=== PATIENT | male | born 1935 | race Caucasian/White ===

== ENCOUNTER 2018-10-19 20:01 | Observation (INO) ==
[2018-10-19 20:42] LABS: Appearance,Urine CLEAR (Clear); Bilirubin,Urine Negative (Negative); Blood, Urine TRACE-I (Negative); Color,Urine YELLOW (Yellow); Glucose,Urine (UA) Negative (Negative); Ketones,Urine Negative (Negative); Leukocyte Esterase,Urine 3+ (Negative); Microscopic, Urine URINE MICROSCOPIC (MICROSCOPIC); PH,Urine 5.5 (5.0-8.5); Protein,Urine Negative (Negative); Specific Gravity, Urine 1.015 (1.005-1.030); Urobilinogen,Urine 0.2 EU/dl (0.2)
[2018-10-19 20:49] LABS: Bacteria,Urine 1+ /lpf
[2018-10-19 21:39] LABS: Basophils # 0.1 K/mm3 (0-0.2); Basophils % 0.5 % (0.1-2.0); Eosinophils # 0.2 K/mm3 (0.0-0.4); Eosinophils % 2.7 % (0.1-12.0); Hematocrit 38.4 % (42.0-52.0); Hemoglobin 12.3 g/dL (14.1-18.0); Lymphocytes # 2.3 K/mm3 (0.7-4.5); Lymphocytes % 25.9 % (10-50); Mean Corpuscular Hemoglobin 28.9 pg (27.0-31.2); Mean Corpuscular Volume 90.1 fl (80-94); Mean Platelet Volume 7.5 fl (7.4-10.4); Monocytes # 0.9 K/mm3 (0.1-1.0); Monocytes % 10.1 % (1.7-9.3); Neutrophils # 5.4 K/mm3 (1.8-7.8); Neutrophils % 60.7 % (37.0-80.0); Platelet Count 268 K/mm3 (142-424); Red Blood Count 4.26 M/mm3 (4.60-6.20); Red Cell Distribution Width 15.7 % (11.5-17.5)
[2018-10-19 21:57] LABS: Alanine Aminotransferase 26 U/L (12-78); Albumin Level 3.1 gm/dL (3.4-5.0); Albumin/Globulin Ratio 0.8 (1.1-1.8); Alkaline Phosphatase 119 U/L (46-116); Anion Gap 15.5 mEq/L (5-15); Aspartate Amino Transferase 19 U/L (15-37); Bilirubin,Total 0.7 mg/dL (0.2-1.0); Blood Urea Nitrogen 35 mg/dL (7-18); Carbon Dioxide 26 mmol/L (21.0-32.0); Chloride 103 mmol/L (98-107); Globulin 3.9 gm/dl (1.3-3.2); Glucose 203 mg/dL (74-106); Potassium 4.5 mmoL/L (3.5-5.1); Sodium 140 mmol/L (136-145)
--- NOTE | 2018-10-19 22:00 | Emergency Department Note ---
ED Disposition Clinical Impression: Renal failure (ARF), acute on chronic Qualifiers: Acute renal failure type: unspecified Chronic kidney disease stage: unspecified stage Qualified Code(s): N17.9 - Acute kidney failure, unspecified; N18.9 - Chronic kidney disease, unspecified UTI (urinary tract infection) Qualifiers: Urinary tract infection type: site unspecified Hematuria presence: without hematuria Qualified Code(s): N39.0 - Urinary tract infection, site not specified Non-Hodgkin lymphoma Qualifiers: Non-Hodgkin lymphoma type: unspecified type Lymphoma site: unspecified region Qualified Code(s): C85.90 - Non-Hodgkin lymphoma, unspecified, unspecified site Type 2 diabetes mellitus Qualifiers: Diabetes mellitus tectonophysicist insulin use: with shelter use Diabetes mellitus complication status: with unspecified complications Qualified Code(s): E11.8 - Type 2 diabetes mellitus with unspecified complications; 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 The time I documented below is in addition to time spent performing reported procedures but includes the following listed in this critical care notation. Medical Decision Making - Medical Records Medical records reviewed: Yes: I reviewed the patient's medical records. - Vinny Inquiry Pt receiving controlled substance: No Vital Signs: 10/19/18 20:14 Temperature 98.8 F Temperature Source Oral Pulse Rate [Right] 74 Respiratory Rate 20 Blood Pressure [Right Arm] 143/61 H Blood Pressure Mean [Right Arm] 88 Blood Pressure Source [Right Arm] Automatic Cuff Blood Pressure Position [Right Arm] Supine 02 Sat by Pulse Oximetry 100 Oxygen Delivery Method Room Air - Lab Data Lab results reviewed: Yes: I reviewed the patient's lab results. Lab Results 10/19/18 20:28: Urine Color Yellow, Urine Appearance Clear, Urine pH 5.5, Ur Specific [place] 1.015, Urine Protein Negative, Urine Glucose (UA) Negative, Urine Ketones Negative, Urine Blood Trace-i, Urine Nitrate Negative, Urine Bilirubin Negative, Urine Urobilinogen 0.2, Ur Leukocyte Esterase 3+ A, Urine RBC 3-5, Urine WBC 10-20, Urine Bacteria 1+ 10/19/18 21:30: WBC 9.0, RBC 4.26 L, Hgb 12.3 L, Hct 38.4 L, MCV 90.1, MCH 28.9, MCHC 32.0, RDW 15.7, Plt Count 268, MPV 7.5, Neut % (Auto) 60.7, Lymph % (Auto) 25.9, Wilkinson % (Auto) 10.1 H, Eos % (Auto) 2.7, Baso % (Auto) 0.5, Neut # (Auto) 5.4, Lymph # (Auto) 2.3, Wilkinson # (Auto) 0.9, Eos # (Auto) 0.2, Baso # (Auto) 0.1 10/19/18 21:30: Sodium 140, Potassium 4.5, Chloride 103, Carbon Dioxide 26, Anion Gap 15.5 H, BUN 35 H, Creatinine 2.58 H, Estimated Creat Clear 34, Estimated GFR 24 L, Est GFR ( Amer) 29 L, Glucose 203 H, Calcium 9.0, Total Bilirubin 0.7, AST 19, ALT 26, Alkaline Phosphatase 119 H, Troponin I < 0.02, Total Protein 7.0, Albumin 3.1 L, Globulin 3.9 H, Albumin/Globulin Ratio 0.8 L Result diagrams: 10/19/18 21:30 10/19/18 21:30 Orders (Tests/Meds): ED MEDICATIONS Generic Name Dose Route Start Last Admin Trade Name Freq PRN Reason Stop Dose Admin Sodium Chloride 1,000 mls @ 999 mls/hr 10/19/18 20:30 10/19/18 20:35 Sod Chlor 0.9% 1000ml Bag IV 10/19/18 21:30 999 mls/hr .Q1H1M YOAV Administration Ceftriaxone Sodium 1 gm/ 50 mls @ 100 mls/hr 10/19/18 22:15 Sodium Chloride IV 11/02/18 22:14 Q24H YOAV Protocol ORDERS Category Date Time Status CT head/brain wo con Stat Cat Scan 10/19/18 20:28 Taken XR chest 2V Stat Exams 10/19/18 20:28 Taken Lactic Acid Stat Lab 10/19/18 21:30 Received Urinalysis and Microscopic Stat Lab 10/19/18 20:28 Ordered Blood Culture Stat Micro 10/19/18 21:30 Received Urine Culture Stat Micro 10/19/18 20:28 Received - Radiology Data #1 Image(s): Chest Image Reviewed: Yes I reviewed the patient's radiology image Preliminary Findings: Abnormal (chronic changes ) - CT Data CT Scan: Head Time Received: 22:[address] Reviewed: Yes: I have viewed the radiologist's interpretation Preliminary Findings: Normal/NAD - ECG Data Tracing #1 Normal Sinus Rhythm: Yes Ischemic changes: non-specific ST-T wave changes Weakness HPI - General Chief complaint: Dizziness Stated complaint: weak,dizzy Time Seen by Provider: 10/19/18 20:25 Mode of Arrival: Wheelchair Limitations: No Limitations Description of Symptoms (Recalled from ER Triage Doc. by RN): Pt states he has been dizzy and light headed today w/ SOA on exertion - History of Present Illness HPI Narrative: progressive weakness and lightheaded with dec ambulation over the last 3 days - had recent uti rx for 3 days with cipro - no fever or chest pain - has hx of cad and diabetes MD Complaint: generalized weakness Onset (ago): day(s) Duration: intermittent Location: generalized Severity: moderate Associated symptoms: shortness of breath - Related Data Home Medications Medication Instructions Recorded Confirmed Amiodarone HCl [Amiodarone 200mg 200 mg PO DAILY 10/26/17 10/19/18 Tab] Atorvastatin Calcium [Atorvastatin 20 mg PO HS 10/26/17 10/19/18 20mg Tab] Carvedilol [Carvedilol 6.25mg Tab] 6.25 mg PO TID 10/26/17 10/19/18 Clopidogrel Bisulfate [Plavix 75mg 75 mg PO DAILY 10/26/17 10/19/18 Tab] Glimepiride 4 mg PO DAILY 10/26/17 10/19/18 Lisinopril [Lisinopril 40mg Tablet] 40 mg PO BID 10/26/17 10/19/18 Mirtazapine [Remeron 15mg tablet] 15 mg PO HS 10/26/17 10/19/18 Tamsulosin HCl [Flomax 0.4mg 0.4 mg PO DAILY 10/26/17 10/19/18 capsule] Cetirizine HCl 10 mg PO DAILY 10/27/17 10/19/18 Pantoprazole Sodium [Protonix 40mg 40 mg PO DAILY 10/27/17 10/19/18 tablet] Cholecalciferol (Vitamin D3) 2,000 units PO DAILY 10/28/17 10/19/18 [Vitamin D3] furosemide 40 mg tablet 40 mg PO DAILY tab 11/11/17 10/19/18 levothyroxine 75 mcg capsule 75 mcg PO DAILY cap 11/11/17 10/19/18 aspirin 325 mg tablet 325 mg PO DAILY 05/19/18 10/19/18 multivitamin tablet 1 tab PO DAILY 05/19/18 10/19/18 Amlodipine Besylate [Amlodipine 10 mg PO DAILY 10/19/18 10/19/18 10mg Tab] Sitagliptin Phosphate [Januvia 25 mg PO DAILY 10/19/18 10/19/18 25mg Tablet] Vit D3-Vit K/Berberine/Hops 1 each PO DAILY 10/19/18 10/19/18 [Ostera Tablet] Allergies Allergy/AdvReac Type Severity Reaction Status Date / Time ibuprofen [From MOTRIN] Allergy Unknown Verified 11/11/17 10:40 meloxicam Allergy Unknown Verified 11/11/17 10:40 Penicillins Allergy Unknown Verified 11/11/17 10:40 [facility] History - Hepatitis A Screen Drug use history?: No High risk sexual behaviors?: No History of sexually transmitted infection?: No Currently employed?: No Childcare worker?: No Do you have indoor plumbing?: Yes Do you have electricity?: Yes Attestation statement:: This patient has been screened for Hepatitis A risk factors. I have reviewed the patient's past medical history: Yes Medical History: Reports:: Arrhythmia, Atherosclerotic Heart Disease, Atrial Fibrillation, BPH, Cancer, Chronic Obstructive Pulmonary Disease (COPD), Coronary Artery Disease, Cerebrovascular Accident, Deep Vein Thrombosis, Diabetes Mellitus Type 2, Gastroesophageal Reflux Disease(GERD), Peripheral Artery Disease, Peripheral Vascular Disease, Renal Insufficiency Denies:: Diabetes Mellitus Type 1, Internal Pacemaker, MRSA, Seizures Other Medical History: Reports: Arthritis, Hypothyroidism, Other Laterality Cases: Left: Carotid Endarterectomy Other Surgeries: No: Pacemaker Amputation: No Fractures: No Comment: Coronary stents in 2015; stents in leg; cholecystectomy; 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) - Social History Smoking Status: Former smoker #Yrs smoked (if former smoker): 40 Alcohol Intake: never Alcohol Intake Frequency:: other Occupational Status: retired Housing: house Household Members: spouse - Psychiatric History Expresses thoughts of harming self/others: None Suicide Plan Description: No Plan Family Hx:: No significant family history ROS Obtained: Yes All systems reviewed & no additional complaints - Constitutional Constitutional: Denies fever(s), Reports weakness - Eyes Eyes: Denies change in vision - ENT Ears, Nose, Mouth, and Throat: Denies sore throat - Cardiovascular Cardiovascular: Denies chest pain, Denies dyspnea - Respiratory Respiratory: No cough - Gastrointestinal Gastrointestingal: Denies: abdominal pain - Genitourinary Male Genitourinary: Denies hematuria - Musculoskeletal Musculoskeletal: Denies joint pain - Integumentary/Breasts Skin/Breast: Denies rash - Neurologic Neurologic: Denies confusion, Denies headache(s), Denies seizure-like activity Physical Exam - General General appearance: alert, obese - Head Head exam: normocephalic - Eye Eye exam: Present: PERRL, EOMI. Absent: scleral icterus - ENT ENT exam: Present: mucous membranes dry - Neck Neck exam: Present: trachea midline - Respiratory Respiratory exam: Present: other (dec bs bilat ). Absent: respiratory distress - Cardiovascular Cardiovascular exam: Present: regular rate, systolic murmur, +S4 - Abdominal Exam Abdominal exam: Present: soft - Extremities Exam Extremities exam: Absent: calf tenderness - Back Exam Back exam: Absent: CVA tenderness (R), CVA tenderness (L) - Neurological Exam Neurological exam: Present: alert, oriented X3, CN II-XII intact. Absent: motor sensory deficit, reflexes normal - Psychiatric Psychiatric exam: Present: normal affect - Skin Skin exam: Absent: rash
[2018-10-20 05:00] LABS: Basophils % 0.5 % (0.1-2.0); Eosinophils # 0.3 K/mm3 (0.0-0.4); Eosinophils % 3.7 % (0.1-12.0); Hematocrit 34.6 % (42.0-52.0); Hemoglobin 11.1 g/dL (14.1-18.0); Lymphocytes # 2.2 K/mm3 (0.7-4.5); Mean Corpuscular HGB Conc 32.2 g/dL (31.8-35.4); Mean Corpuscular Hemoglobin 28.8 pg (27.0-31.2); Mean Corpuscular Volume 89.5 fl (80-94); Mean Platelet Volume 8.2 fl (7.4-10.4); Monocytes # 0.8 K/mm3 (0.1-1.0); Monocytes % 10.8 % (1.7-9.3); Neutrophils # 4.2 K/mm3 (1.8-7.8); Platelet Count 244 K/mm3 (142-424); Red Blood Count 3.87 M/mm3 (4.60-6.20); Red Cell Distribution Width 15.8 % (11.5-17.5); White Blood Count 7.5 K/mm3 (4.8-10.8)
[2018-10-20 05:07] LABS: Anion Gap 13.7 mEq/L (5-15); Calcium 8.6 mg/dL (8.5-10.1); Potassium 3.7 mmoL/L (3.5-5.1)
--- NOTE | 2018-10-20 07:18 | Pharmacy Consult Notes ---
[facility] Pharmacy VTE Monitoring - Patient Demographics Admission date: 10/19/18 Report Date: 10/20/18 Time: 07:18 Allergies/Adverse Reactions: Patient Allergies ibuprofen [From MOTRIN] Allergy (Unknown, Verified 11/11/17 10:40) meloxicam Allergy (Unknown, Verified 11/11/17 10:40) Penicillins Allergy (Unknown, Verified 11/11/17 10:40) Height: 1.78 m Weight: 109.679 kg Patient Problems: Current Active Problems Non-Hodgkin lymphoma (Chronic) Hypothyroidism (Chronic) Type 2 diabetes mellitus (Chronic) Renal failure (ARF), acute on chronic (Acute) UTI (urinary tract infection) (Acute) - VTE Risk Labs: VTE Related Lab Results Hgb 11.1 g/dL (14.1-18.0) L 10/20/18 04:45 Hct 34.6 % (42.0-52.0) L 10/20/18 04:45 Plt Count 244 K/mm3 (142-424) 10/20/18 04:45 BUN 32 mg/dL (7-18) H 10/20/18 04:45 Creatinine 2.26 mg/dL (0.70-1.30) H 10/20/18 04:45 Estimated Creat Clear 38 mL/min (50-200) 10/20/18 04:45 Was VTE Risk Assessment Performed: Yes VTE Score: 4 VTE Risk Level: Low Risk - Prophylaxis VTE Prophylaxis Ordered?: Yes Types of VTE Prophylaxis: TEDS Knee High Location of Applied Device: Bilateral Lower Extremeties - VTE Diagnosis Confirmed Treatment or plan recommended: Continue Current Treatment
--- NOTE | 2018-10-20 08:41 | History & Physical Report ---
Addendum entered and electronically signed by Ellyn Lynn APRN 10/20/18 09:56: TSH 09/15/2018-2.74 Original Note: *Admission Date: 10/19/18 <Ellyn Lynn - 10/20/18 08:45> *Chief complaint: Weakness and shortness of breath <Ellyn Lynn - 10/20/18 08:45> *History of present illness: Mr. Lopez is a 83-year-old male with a history of CVA, atrial fibrillation, known carotid artery disease, non-Hodgkin's lymphoma in remission, hypertension, hyperlipidemia, DVT/PE, ASCVD, PVD, type 2 diabetes mellitus, hypothyroidism and renal insufficiency who was brought to the [facility] emergency room by his daughter via private vehicle due to progressive weakness associated with shortness of breath and lightheadedness. Patient denied having chest pain and palpitations. He has been eating normally without problems. Bowels are moving regularly. He was treated last week for Klebsiella urinary tract infection with Cipro. He states he has been voiding normally since then. He denies fever, cough, and other respiratory symptoms. With evaluation in the emergency room he was given a liter of IV fluids and started on IV Rocephin. He was admitted for further evaluation and treatment. Chest x-ray showed nothing acute. CT of the head showed nothing acute. This a.m. patient is comfortable sitting on the side of the bed. He denies shortness of breath, chest pain, and heart palpitations. He states he did not sleep at all during the night due to the new environment and noises. <Ellyn Lynn - 10/20/18 09:31> [facility] History Medical History: Reports:: Arrhythmia, Atherosclerotic Heart Disease, Atrial Fibrillation, BPH, Cancer (non-hodgkins lymphoma), Chronic Obstructive Pulmonary Disease (COPD), Coronary Artery Disease, Cerebrovascular Accident, Deep Vein Thrombosis, Diabetes Mellitus Type 2, Gastroesophageal Reflux Disease(GERD), Hyperlipidemia, Hypertension, Peripheral Artery Disease, Peripheral Vascular Disease, Renal Insufficiency Denies:: Dementia, Depression, Diabetes Mellitus Type 1, Internal Pacemaker, MRSA, Seizures <Ellyn Lynn 10/20/18 09:20> *Have you ever received a pneumonia vaccine?: No <Ellyn Lynn 10/20/18 08:45> *Have you received a flu vaccine this season?: Yes <ShaneEllyn 10/20/18 08:45> Other Medical History: Reports: Arthritis, Cataracts, Hypothyroidism, Thyroid Disease, Other <LynnEllyn 10/20/18 09:20> Laterality Cases: Left: Carotid Endarterectomy <ShaneEllyn 10/20/18 08:45> Other Surgeries: Yes: Cardiac Catheterization, Cholecystectomy, Colonoscopy, Colon Resection, Coronary Stent, Other (Carotid Endarterectomy). No: Pacemaker <LynnEllyn 10/20/18 08:45> Amputation: No <LynnEllyn 10/20/18 08:45> Fractures: No <LynnEllyn 10/20/18 08:45> - *Social History Educational Level: Completed High School <LynnEllyn carter 10/20/18 08:45> Smoking Status: Former smoker <Lynn,Ellyn 10/20/18 08:45> #Yrs smoked (if former smoker): 40 <Ellyn Lynn 10/20/18 08:45> Alcohol Intake: never <LynnEllyn 10/20/18 08:45> Alcohol Intake Frequency:: other <LynnEllyn 10/20/18 08:45> *Occupational Status:: retired <LynnEllyn carter 10/20/18 08:45> Housing: house <LynnEllyn 10/20/18 08:45> Household Members: children <LynnEllyn carter 10/20/18 09:20> *Travel in the last 8 weeks: None <Ellyn Lynn 10/20/18 08:45> - Psychiatric History Expresses thoughts of harming self/others: None <Ellyn Lynn 10/20/18 08:45> Suicide Plan Description: No Plan <Ellyn Lynn 10/20/18 08:45> Family Hx:: Cancer <Ellyn yLnn 10/20/18 08:45> Review of Systems - Constitutional Reports weakness, Denies body ache(s), Denies chills, Denies fever(s), Denies headache(s), Denies weight loss <Ellyn Lynn 10/20/18 09:20> - Eyes Denies change in vision <Ellyn Lynn 10/20/18 09:20> - ENT Reports dizziness, Denies ear pain, Denies headache(s), Denies sore throat [facility]/18 09[facility]> - *Cardiovascular Reports shortness of breath, Reports shortness of breath with activity, Reports leg swelling (Sometimes), Reports lightheadedness, Denies chest pain, Denies generalized swelling, Denies irregular heart rhythm <[facility] 10/20/18 09:20> - *Respiratory Reports shortness of breath, Reports shortness of breath with activity, Denies chest congestion, Denies cough, Denies coughing up blood <[facility] 10/20/18 09:20> - *Gastrointestinal Denies abdominal pain, Denies change in bowel habits, Denies change in stools, Denies constipation, Denies loose stools, Denies heartburn, Denies incontinent of stools, Denies heartburn, Denies vomiting blood, Denies bright, red blood in stools, Denies black, tarry stools, Denies nausea, Denies vomiting <[facility] 10/20/18 09:20> - *Genitourinary Denies difficulty urinating, Denies painful urination, Denies urinary frequency <[facility] 10/20/18 09:20> - *Musculoskeletal Reports abnormal walking (Has had to use his walker due to legs being weak), Reports joint pain (Left knee), Reports muscle weakness, Denies body aches <[facility] 10/20/18 09:20> - *Neurologic Reports dizziness, Reports dizziness, Reports weakness, Denies confusion, Denies frequent falls, Denies headache(s), Denies other visual disturbances, Denies seizure-like activity <[facility] 10/20/18 09:20> Meds Home Medications Medication Instructions Recorded Confirmed Type Atorvastatin Calcium [Atorvastatin 20 mg PO HS 10/26/17 10/19/18 History 20mg Tab] Carvedilol [Carvedilol 6.25mg Tab] 6.25 mg PO TID 10/26/17 10/19/18 History Clopidogrel Bisulfate [Plavix 75mg 75 mg PO DAILY 10/26/17 10/19/18 History Tab] Glimepiride 4 mg PO DAILY 10/26/17 10/19/18 History Lisinopril [Lisinopril 40mg Tablet] 40 mg PO BID 10/26/17 10/19/18 History Mirtazapine [Remeron 15mg tablet] 15 mg PO HS 10/26/17 10/19/18 History Tamsulosin HCl [Flomax 0.4mg 0.4 mg PO DAILY 10/26/17 10/19/18 History capsule] Pantoprazole Sodium [Protonix 40mg 40 mg PO DAILY 10/27/17 10/19/18 History tablet] Cholecalciferol (Vitamin D3) 2,000 units PO DAILY 10/28/17 10/19/18 History [Vitamin D3] furosemide 40 mg tablet 40 mg PO DAILY tab 11/11/17 10/19/18 History levothyroxine 75 mcg capsule 75 mcg PO DAILY cap 11/11/17 10/19/18 History aspirin 325 mg tablet 325 mg PO DAILY 05/19/18 10/19/18 History multivitamin tablet 1 tab PO DAILY 05/19/18 10/19/18 History Amlodipine Besylate [Amlodipine 10 mg PO DAILY 10/19/18 10/19/18 History 10mg Tab] Sitagliptin Phosphate [Januvia 25 mg PO DAILY 10/19/18 10/19/18 History 25mg Tablet] Vit D3-Vit K/Berberine/Hops 1 each PO DAILY 10/19/18 10/19/18 History [Ostera Tablet] Amiodarone HCl [Cordarone 200mg 200 mg PO DAILY 10/20/18 10/20/18 History tablet] Cetirizine HCl [Zyrtec] 10 mg PO DAILY 10/20/18 10/20/18 History <César White - 10/21/18 22:06> Allergies Allergy/AdvReac Type Severity Reaction Status Date / Time ibuprofen [From MOTRIN] Allergy Unknown Verified 11/11/17 10:40 meloxicam Allergy Unknown Verified 11/11/17 10:40 Penicillins Allergy Unknown Verified 11/11/17 10:40 <César White - 10/21/18 22:06> Exam Vital signs and Labs for Last 24 Hours: Temp Pulse Resp BP Pulse Ox 98.5 F 73 17 149/72 H 94 L 10/21/18 20:00 10/21/18 20:00 10/21/18 20:00 10/21/18 20:00 10/21/18 20:00 Laboratory Results - last 24 hr 10/21/18 05:07: POC Glucose 122 H 10/21/18 06:20: WBC 6.8, RBC 3.73 L, Hgb 10.7 L, Hct 33.6 L, MCV 90.2, MCH 28.6, MCHC 31.7 L, RDW 15.2, Plt Count 229, MPV 7.7, Neut % (Auto) 60.0, Lymph % (Auto) 23.8, [place] % (Auto) 12.0 H, Eos % (Auto) 3.9, Baso % (Auto) 0.3, Neut # (Auto) 4.0, Lymph # (Auto) 1.6, [place] # (Auto) 0.8, Eos # (Auto) 0.3, Baso # (Auto) 0.0 10/21/18 06:20: Sodium 143, Potassium 4.0, Chloride 109 H, Carbon Dioxide 26, Anion Gap 12.0, BUN 22 H D, Creatinine 1.63 H D, Estimated Creat Clear 51, Estimated GFR 40 L, Est GFR ( Amer) 49 L D, Glucose 139 H, Calcium 8.7 10/21/18 11:17: POC Glucose 188 H 10/21/18 16:43: POC Glucose 115 H 10/21/18 20:34: POC Glucose 192 H <ChristopherCésar Carlos Alberto - 10/21/18 22:06> Temp Pulse Resp BP Pulse Ox 98.0 F 81 18 144/60 H 93 L 10/20/18 08:00 10/20/18 08:00 10/20/18 08:00 10/20/18 08:00 10/20/18 08:00 Laboratory Results - last 24 hr 10/19/18 20:28: Urine Color Yellow, Urine Appearance Clear, Urine pH 5.5, Ur Specific [place] 1.015, Urine Protein Negative, Urine Glucose (UA) Negative, Urine Ketones Negative, Urine Blood Trace-i, Urine Nitrate Negative, Urine Bilirubin Negative, Urine Urobilinogen 0.2, Ur Leukocyte Esterase 3+ A, Urine RBC 3-5, Urine WBC 10-20, Urine Bacteria 1+ 10/19/18 21:30: WBC 9.0, RBC 4.26 L, Hgb 12.3 L, Hct 38.4 L, MCV 90.1, MCH 28.9, MCHC 32.0, RDW 15.7, Plt Count 268, MPV 7.5, Neut % (Auto) 60.7, Lymph % (Auto) 25.9, [place] % (Auto) 10.1 H, Eos % (Auto) 2.7, Baso % (Auto) 0.5, Neut # (Auto) 5.4, Lymph # (Auto) 2.3, [place] # (Auto) 0.9, Eos # (Auto) 0.2, Baso # (Auto) 0.1 10/19/18 21:30: Sodium 140, Potassium 4.5, Chloride 103, Carbon Dioxide 26, Anion Gap 15.5 H, BUN 35 H, Creatinine 2.58 H, Estimated Creat Clear 34, Estimated GFR 24 L, Est GFR ( Amer) 29 L, Glucose 203 H, Calcium 9.0, Total Bilirubin 0.7, AST 19, ALT 26, Alkaline Phosphatase 119 H, Troponin I < 0.02, Total Protein 7.0, Albumin 3.1 L, Globulin 3.9 H, Albumin/Globulin Ratio 0.8 L 10/19/18 21:30: Lactate 2.5 H 10/20/18 01:30: Troponin I < 0.02 10/20/18 01:30: Lactate 0.9 10/20/18 04:45: Troponin I < 0.02 10/20/18 04:45: WBC 7.5, RBC 3.87 L, Hgb 11.1 L, Hct 34.6 L, MCV 89.5, MCH 28.8, MCHC 32.2, RDW 15.8, Plt Count 244, MPV 8.2, Neut % (Auto) 56.0, Lymph % (Auto) 29.0, [place] % (Auto) 10.8 H, Eos % (Auto) 3.7, Baso % (Auto) 0.5, Neut # (Auto) 4.2, Lymph # (Auto) 2.2, [place] # (Auto) 0.8, Eos # (Auto) 0.3, Baso # (Auto) 0.0 10/20/18 04:45: Sodium 144, Potassium 3.7, Chloride 107, Carbon Dioxide 27, Anion Gap 13.7, BUN 32 H, Creatinine 2.26 H, Estimated Creat Clear 38, Estimated GFR 28 L, Est GFR ( Amer) 34 L, Glucose 119 H D, Calcium 8.6, Magnesium 1.7 10/20/18 05:49: POC Glucose 111 H <Ellyn Lynn - 10/20/18 09:20> I & O for Last 24 hours: Intake & Output 10/19/18 10/20/18 10/21/18 10/22/18 11:59 11:59 11:59 11:59 Intake Total 700 / 700 2078 2390 / 2390 Output Total 300 / 300 Balance 400 / 400 2078 2390 / 2390 Weight 241 lb 12.8 oz 241 lb <César White - 10/21/18 22:06> Intake & Output 10/17/18 10/18/18 10/19/18 10/20/18 11:59 11:59 11:59 11:59 Intake Total 700 / 700 Output Total 300 / 300 Balance 400 / 400 Weight 241 lb 12.8 oz <Ellyn Lynn - 10/20/18 08:45> Microbiology Reports for the Last 24 Hours: Microbiology 10/19/18 21:30 Blood Blood Culture - Preliminary NO GROWTH AFTER 48 HOURS 10/19/18 21:30 Blood Blood Culture - Preliminary NO GROWTH AFTER 48 HOURS 10/19/18 20:28 Urine,Clean Catch Urine Culture - Final Klebsiella pneumoniae <César White - 10/21/18 22:06> Microbiology 10/19/18 20:28 Urine,Clean Catch Urine Culture - Preliminary Gram Negative Rods <Ellyn Lynn - 10/20/18 09:20> Radiology Reports for the Last 24 Hours: 10/19/2018 chest x-ray IMPRESSION: No change with no acute finding 10/19/2018 CT of the head IMPRESSION: 1. No acute intracranial findings. 2. Agenesis of the corpus callosum <Ellyn Lynn - 10/20/18 08:45> - Constitutional no acute distress, obese <Ellyn Lynn - 10/20/18 08:45> Comments: Patient appears comfortable. Sitting on the bedside completing his breakfast. <Ellyn Lynn 10/20/18 08:45> - *Routine HEENT Exam Head: Present: normocephalic, atraumatic <Ellyn Lynn 10/20/18 08:45> Eye: Present: PERRL. Absent: conjunctival icterus, scleral injection <Ellyn Lynn 10/20/18 08:45> ENT: Present: mucous membranes moist, oropharynx clear <Ellyn Lynn 10/20/18 08:45> - *Routine Neck Exam Present: supple, carotid bruit (Bilaterally). Absent: lymphadenopathy, thyromegaly, tenderness <Ellyn Lynn 10/20/18 08:45> - *Routine Respiratory Exam Present: CTA bilaterally (Anteriorly and posteriorly) <Ellyn Lynn 10/20/18 08:45> - *Routine Cardiovascular Exam Present: RRR (No ectopy heard. Heart rate in the 90s) <Ellyn Lynn 10/20/18 08:45> - *Routine Abdominal Exam Present: soft, normoactive bowel sounds, surgical scars. Absent: tenderness, guarding <Ellyn Lynn 10/20/18 08:45> Comments: Obese <Ellyn Lynn 10/20/18 08:45> - *Routine Extremities Exam Present: edema (Trace to 1+), pulses intact. Absent: calf tenderness <Ellyn Lynn 10/20/18 08:45> - *Routine Neurological Exam Present: alert, oriented X3, CN II-XII intact, moving all extremities, normal speech <Clementina Lynnhy 10/20/18 08:45> Assessment and Plan (1) Dehydration Current visit: No Status: Acute Category: Medical Code(s): E86.0 - Dehydration (2) UTI (urinary tract infection) Current visit: Yes Status: Acute Qualifiers: Urinary tract infection type: site unspecified Hematuria presence: without hematuria Qualified Code(s): N39.0 - Urinary tract infection, site not specified Category: Medical Code(s): N39.0 - Urinary tract infection, site not specified (3) Renal failure (ARF), acute on chronic Current visit: Yes Status: Acute Qualifiers: Acute renal failure type: unspecified Chronic kidney disease stage: unspecified stage Qualified Code(s): N17.9 - Acute kidney failure, unspecified; N18.9 - Chronic kidney disease, unspecified Category: Medical Code(s): N17.9 - Acute kidney failure, unspecified; N18.9 - Chronic kidney disease, unspecified (4) History of atrial fibrillation Current visit: Yes Status: Chronic Category: Medical Code(s): Z86.79 - Personal history of other diseases of the circulatory system (5) Hypothyroidism Current visit: Yes Status: Chronic Qualifiers: Hypothyroidism type: acquired Qualified Code(s): E03.9 - Hypothyroidism, unspecified Category: Medical Code(s): E03.9 - Hypothyroidism, unspecified (6) Non-Hodgkin lymphoma Current visit: Yes Status: Chronic Qualifiers: Non-Hodgkin lymphoma type: unspecified type Lymphoma site: unspecified region Qualified Code(s): C85.90 - Non-Hodgkin lymphoma, unspecified, unspecified site Category: Medical Code(s): C85.90 - Non-Hodgkin lymphoma, unspecified, unspecified site (7) Type 2 diabetes mellitus Current visit: Yes Status: Chronic Qualifiers: Diabetes mellitus oysterman insulin use: with assisted use Diabetes mellitus complication status: with unspecified complications Qualified Code(s): E11.8 - Type 2 diabetes mellitus with unspecified complications; Z79.4 - keno terminal operator (current) use of insulin Category: Medical Code(s): E11.9 - Type 2 diabetes mellitus without complications (8) ASCVD (arteriosclerotic cardiovascular disease) Current visit: No Status: Chronic Category: Medical Code(s): I25.10 - Atherosclerotic heart disease of [place] coronary artery without angina pectoris (9) Chronic CHF Current visit: No Status: Chronic Qualifiers: Heart failure type: unspecified Qualified Code(s): I50.9 - Heart failure, unspecified Category: Medical Code(s): I50.9 - Heart failure, unspecified (10) HTN (hypertension) Current visit: No Status: Chronic Category: Medical Code(s): I10 - Essential (primary) hypertension (11) Dyspnea Current visit: Yes Status: Acute Category: Medical Code(s): R06.00 - Dyspnea, unspecified (12) CKD (chronic kidney disease) stage 3, GFR 30-59 ml/min Current visit: Yes Status: Acute Category: Medical Code(s): N18.3 - Chronic kidney disease, stage 3 (moderate) <César White - 10/21/18 22:06> (1) Dehydration Current visit: No Status: Acute Category: Medical Code(s): E86.0 - Dehydration (2) UTI (urinary tract infection) Current visit: Yes Status: Acute Qualifiers: Urinary tract infection type: site unspecified Hematuria presence: without hematuria Qualified Code(s): N39.0 - Urinary tract infection, site not specified Category: Medical Code(s): N39.0 - Urinary tract infection, site not specified (3) Renal failure (ARF), acute on chronic Current visit: Yes Status: Acute Qualifiers: Acute renal failure type: unspecified Chronic kidney disease stage: unspecified stage Qualified Code(s): N17.9 - Acute kidney failure, unspecified; N18.9 - Chronic kidney disease, unspecified Category: Medical Code(s): N17.9 - Acute kidney failure, unspecified; N18.9 - Chronic kidney disease, unspecified (4) History of atrial fibrillation Current visit: Yes Status: Chronic Category: Medical Code(s): Z86.79 - Personal history of other diseases of the circulatory system (5) Hypothyroidism Current visit: Yes Status: Chronic Qualifiers: Hypothyroidism type: acquired Qualified Code(s): E03.9 - Hypothyroidism, unspecified Category: Medical Code(s): E03.9 - Hypothyroidism, unspecified (6) Non-Hodgkin lymphoma Current visit: Yes Status: Chronic Qualifiers: Non-Hodgkin lymphoma type: unspecified type Lymphoma site: unspecified region Qualified Code(s): C85.90 - Non-Hodgkin lymphoma, unspecified, unspecified site Category: Medical Code(s): C85.90 - Non-Hodgkin lymphoma, unspecified, unspecified site (7) Type 2 diabetes mellitus Current visit: Yes Status: Chronic Qualifiers: Diabetes mellitus assisted insulin use: with oysterman use Diabetes mellitus complication status: with unspecified complications Qualified Code(s): E11.8 - Type 2 diabetes mellitus with unspecified complications; Z79.4 - care home (current) use of insulin Category: Medical Code(s): E11.9 - Type 2 diabetes mellitus without complications (8) ASCVD (arteriosclerotic cardiovascular disease) Current visit: No Status: Chronic Category: Medical Code(s): I25.10 - Atherosclerotic heart disease of [place] coronary artery without angina pectoris (9) CKD (chronic kidney disease) stage 2, GFR 60-89 ml/min Current visit: No Status: Chronic Category: Medical Code(s): N18.2 - Chronic kidney disease, stage 2 (mild) (10) Chronic CHF Current visit: No Status: Chronic Qualifiers: Heart failure type: unspecified Qualified Code(s): I50.9 - Heart failure, unspecified Category: Medical Code(s): I50.9 - Heart failure, unspecified (11) HTN (hypertension) Current visit: No Status: Chronic Category: Medical Code(s): I10 - Essential (primary) hypertension (12) Dyspnea <Ellyn Lynn - 10/20/18 09:52> - Assessment and plan all Dx Assessment and Plan for all problems:: Patient seen and examined this AM. Concur with assessment and plan as edited above. <César White - 10/21/18 22:06> Continue with IV Rocephin for UTI until culture results available. Patient has been placed on cardiac rehabilitation program director. Echo results are pending. Patient has been placed on sliding scale. Most home meds have been ordered. Will discontinue lisinopril for now due to renal function. Will monitor labs. Also cardiology consult <Ellyn Lynn - 10/20/18 09:53>
--- NOTE | 2018-10-20 10:22 | Consult Report ---
History of Present Illness Consult date: 10/20/18 Requesting physician: César White Chief complaint: Weakness, SOA with exertion Additional Medical History:: 1. CAD A. Remote history of [place] B. 2 ANNA to RCA, 06/30/2015 2. Mild Cardiomyopathy with inferior scar and LVEF 50-55% by echo, 2014 A. Echo, 05/2018, 1. Mildly enlarged left atrium, normal left ventricular size, mild concentric left ventricular hypertrophy, visually estimated ejection fraction 55% with no regional wall motion abnormality, endocardial surfaces are poorly visualized. Grade 1 diastolic dysfunction seen with tissue Doppler evidence of raised left atrial pressure. 2. Mild mitral and tricuspid regurgitation 3. No significant pericardial effusion noted 3. 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 CKD A. Cr 2.26 with GFR 28, 10/20/2018 5. A. fib A. History of coumadin therapy discontinued 2015 B. Maintaining NSR on amiodarone therapy 6. DM, treated for 15 >yrs 7. Carotid artery disease A. chronic LICA occlusion B. Right CEA, Dr. Osmel Woodruff, [facility] 8. Non-Hodgkins Lymphoma, 2008 with recurrence, 2017 9. Remote DVT/PE 10. Hypothyroidism 11. GERD History of present illness: Mr. Lopez is a 83-year-old male with a history of CVA, atrial fibrillation, known carotid artery disease, non-Hodgkin's lymphoma in remission, hypertension, hyperlipidemia, DVT/PE, ASCVD, PVD, type 2 diabetes mellitus, hypothyroidism and renal insufficiency who was brought to the [facility] emergency room by his daughter via private vehicle due to progressive weakness associated with shortness of breath and lightheadedness. Patient denied having chest pain and palpitations. He has been eating normally without problems. Bowels are moving regularly. He was treated last week for Klebsiella urinary tract infection with Cipro. He states he has been voiding normally since then. He denies fever, cough, and other respiratory symptoms. With evaluation in the emergency room he was given a liter of IV fluids and started on IV Rocephin. He was admitted for further evaluation and treatment. Chest x-ray showed nothing acute. CT of the head showed nothing acute. This a.m. patient is comfortable sitting on the side of the bed. He denies shortness of breath, chest pain, and heart palpitations. He states he did not sleep at all during the night due to the new environment and noises The above per Ellyn Santacruz APRN, for Dr. White Cardiology consulted for evaluation of the patient's complaint of weakness and shortness of breath. His shortness of breath seems to be related to exertion although he states it is not consistent with activity. He may have the shortness of breath while at rest. He describes weakness of the legs which prompted him to use a walker to move around his home. He admits to low level of activity. EKG appears to be sinus rhythm with no acute changes. Troponins have returned normal. Patient is on 2 antianginal medications including carvedilol and amlodipine along with aspirin and Plavix for antiplatelet therapy. Preliminary echocardiogram this a.m. shows preserved ejection fraction. [facility] [place] History Medical History: Reports:: Arrhythmia, Atherosclerotic Heart Disease, Atrial Fibrillation, BPH, Cancer (non-hodgkins lymphoma), Chronic Obstructive Pulmonary Disease (COPD), Coronary Artery Disease, Cerebrovascular Accident, Deep Vein Thrombosis, Diabetes Mellitus Type 2, Gastroesophageal Reflux Disease(GERD), Hyperlipidemia, Hypertension, Peripheral Artery Disease, Peripheral Vascular Disease, Renal Insufficiency Denies:: Dementia, Depression, Diabetes Mellitus Type 1, Internal Pacemaker, MRSA, Seizures *Have you ever received a pneumonia vaccine?: No *Have you received a flu vaccine this season?: Yes Other Medical History: Reports: Arthritis, Cataracts, Hypothyroidism, Thyroid Disease, Other Laterality Cases: Left: Carotid Endarterectomy Other Surgeries: Yes: Cardiac Catheterization, Cholecystectomy, Colonoscopy, Colon Resection, Coronary Stent, Other (Carotid Endarterectomy). No: Pacemaker Amputation: No Fractures: No - *Social History Educational Level: Completed High School Smoking Status: Former smoker #Yrs smoked (if former smoker): 40 Alcohol Intake: never Alcohol Intake Frequency:: other *Occupational Status:: retired Housing: house Household Members: children *Travel in the last 8 weeks: None - Psychiatric History Expresses thoughts of harming self/others: None Suicide Plan Description: No Plan Pschychiatric History:: Denies:: Depression Family Hx:: Cancer Meds Home Medications Medication Instructions Recorded Confirmed Type Atorvastatin Calcium [Atorvastatin 20 mg PO HS 10/26/17 10/19/18 History 20mg Tab] Carvedilol [Carvedilol 6.25mg Tab] 6.25 mg PO TID 10/26/17 10/19/18 History Clopidogrel Bisulfate [Plavix 75mg 75 mg PO DAILY 10/26/17 10/19/18 History Tab] Glimepiride 4 mg PO DAILY 10/26/17 10/19/18 History Lisinopril [Lisinopril 40mg Tablet] 40 mg PO BID 10/26/17 10/19/18 History Mirtazapine [Remeron 15mg tablet] 15 mg PO HS 10/26/17 10/19/18 History Tamsulosin HCl [Flomax 0.4mg 0.4 mg PO DAILY 10/26/17 10/19/18 History capsule] Pantoprazole Sodium [Protonix 40mg 40 mg PO DAILY 10/27/17 10/19/18 History tablet] Cholecalciferol (Vitamin D3) 2,000 units PO DAILY 10/28/17 10/19/18 History [Vitamin D3] furosemide 40 mg tablet 40 mg PO DAILY tab 11/11/17 10/19/18 History levothyroxine 75 mcg capsule 75 mcg PO DAILY cap 11/11/17 10/19/18 History aspirin 325 mg tablet 325 mg PO DAILY 05/19/18 10/19/18 History multivitamin tablet 1 tab PO DAILY 05/19/18 10/19/18 History Amlodipine Besylate [Amlodipine 10 mg PO DAILY 10/19/18 10/19/18 History 10mg Tab] Sitagliptin Phosphate [Januvia 25 mg PO DAILY 10/19/18 10/19/18 History 25mg Tablet] Vit D3-Vit K/Berberine/Hops 1 each PO DAILY 10/19/18 10/19/18 History [Ostera Tablet] Amiodarone HCl [Cordarone 200mg 200 mg PO DAILY 10/20/18 10/20/18 History tablet] Cetirizine HCl [Zyrtec] 10 mg PO DAILY 10/20/18 10/20/18 History Allergies Allergy/AdvReac Type Severity Reaction Status Date / Time ibuprofen [From MOTRIN] Allergy Unknown Verified 11/11/17 10:40 meloxicam Allergy Unknown Verified 11/11/17 10:40 Penicillins Allergy Unknown Verified 11/11/17 10:40 Review of Systems - *Cardiovascular Reports shortness of breath with activity, Denies chest pain - *Respiratory Reports shortness of breath with activity, Denies cough - *Gastrointestinal Denies abdominal pain, Denies loose stools - *Genitourinary Reports side pain, Denies testicle pain - *Musculoskeletal Reports joint pain, Reports back pain - *Neurologic Reports abnormal walking (Has had to use his walker due to legs being weak), Reports dizziness, Reports dizziness, Reports weakness, Denies confusion, Denies frequent falls, Denies headache(s), Denies other visual disturbances, Denies seizure-like activity Exam Vital signs and Labs for Last 24 Hours: Temp Pulse Resp BP Pulse Ox 98.0 F 81 18 144/60 H 93 L 10/20/18 08:00 10/20/18 08:00 10/20/18 08:00 10/20/18 08:00 10/20/18 08:00 Laboratory Results - last 24 hr 10/19/18 20:28: Urine Color Yellow, Urine Appearance Clear, Urine pH 5.5, Ur Specific [place] 1.015, Urine Protein Negative, Urine Glucose (UA) Negative, Urine Ketones Negative, Urine Blood Trace-i, Urine Nitrate Negative, Urine Bilirubin Negative, Urine Urobilinogen 0.2, Ur Leukocyte Esterase 3+ A, Urine RBC 3-5, Urine WBC 10-20, Urine Bacteria 1+ 10/19/18 21:30: WBC 9.0, RBC 4.26 L, Hgb 12.3 L, Hct 38.4 L, MCV 90.1, MCH 28.9, MCHC 32.0, RDW 15.7, Plt Count 268, MPV 7.5, Neut % (Auto) 60.7, Lymph % (Auto) 25.9, [place] % (Auto) 10.1 H, Eos % (Auto) 2.7, Baso % (Auto) 0.5, Neut # (Auto) 5.4, Lymph # (Auto) 2.3, [place] # (Auto) 0.9, Eos # (Auto) 0.2, Baso # (Auto) 0.1 10/19/18 21:30: Sodium 140, Potassium 4.5, Chloride 103, Carbon Dioxide 26, Anion Gap 15.5 H, BUN 35 H, Creatinine 2.58 H, Estimated Creat Clear 34, Estimated GFR 24 L, Est GFR ( Amer) 29 L, Glucose 203 H, Calcium 9.0, Total Bilirubin 0.7, AST 19, ALT 26, Alkaline Phosphatase 119 H, Troponin I < 0.02, Total Protein 7.0, Albumin 3.1 L, Globulin 3.9 H, Albumin/Globulin Ratio 0.8 L 10/19/18 21:30: Lactate 2.5 H 10/20/18 01:30: Troponin I < 0.02 10/20/18 01:30: Lactate 0.9 10/20/18 04:45: Troponin I < 0.02 10/20/18 04:45: WBC 7.5, RBC 3.87 L, Hgb 11.1 L, Hct 34.6 L, MCV 89.5, MCH 28.8, MCHC 32.2, RDW 15.8, Plt Count 244, MPV 8.2, Neut % (Auto) 56.0, Lymph % (Auto) 29.0, [place] % (Auto) 10.8 H, Eos % (Auto) 3.7, Baso % (Auto) 0.5, Neut # (Auto) 4.2, Lymph # (Auto) 2.2, [place] # (Auto) 0.8, Eos # (Auto) 0.3, Baso # (Auto) 0.0 10/20/18 04:45: Sodium 144, Potassium 3.7, Chloride 107, Carbon Dioxide 27, Anion Gap 13.7, BUN 32 H, Creatinine 2.26 H, Estimated Creat Clear 38, Estimated GFR 28 L, Est GFR ( Amer) 34 L, Glucose 119 H D, Calcium 8.6, Magnesium 1.7 10/20/18 04:45: TSH 3.32 D 10/20/18 05:49: POC Glucose 111 H I & O for Last 24 hours: Intake & Output 10/17/18 10/18/18 10/19/18 10/20/18 11:59 11:59 11:59 11:59 Intake Total 700 / 700 Output Total 300 / 300 Balance 400 / 400 Weight 241 lb 12.8 oz Microbiology Reports for the Last 24 Hours: Microbiology 10/19/18 20:28 Urine,Clean Catch Urine Culture - Preliminary Gram Negative Rods - *Routine HEENT Exam Head: Present: normocephalic Eye: Present: EOMI, PERRL ENT: Present: mucous membranes moist - *Routine Neck Exam Present: supple, carotid bruit. Absent: JVD - *Routine Respiratory Exam Present: CTA bilaterally. Absent: accessory muscle use, rales, rhonchi, wheezes - *Routine Cardiovascular Exam Present: RRR. Absent: murmur, gallop, rubs - *Routine Abdominal Exam Present: soft. Absent: tenderness, distended, guarding - *Routine Extremities Exam Absent: edema, calf tenderness - *Routine Neurological Exam Present: alert, oriented X3, moving all extremities Assessment and Plan (1) Dehydration Current visit: No Status: Acute Category: Medical Code(s): E86.0 - Dehydration (2) UTI (urinary tract infection) Current visit: Yes Status: Acute Qualifiers: Urinary tract infection type: site unspecified Hematuria presence: without hematuria Qualified Code(s): N39.0 - Urinary tract infection, site not specified Category: Medical Code(s): N39.0 - Urinary tract infection, site not specified (3) Renal failure (ARF), acute on chronic Current visit: Yes Status: Acute Qualifiers: Acute renal failure type: unspecified Chronic kidney disease stage: unsp ecified stage Qualified Code(s): N17.9 - Acute kidney failure, unspecified; N18.9 - Chronic kidney disease, unspecified Category: Medical Code(s): N17.9 - Acute kidney failure, unspecified; N18.9 - Chronic kidney disease, unspecified (4) History of atrial fibrillation Current visit: Yes Status: Chronic Category: Medical Code(s): Z86.79 - Personal history of other diseases of the circulatory system (5) Hypothyroidism Current visit: Yes Status: Chronic Qualifiers: Hypothyroidism type: acquired Qualified Code(s): E03.9 - Hypothyroidism, unspecified Category: Medical Code(s): E03.9 - Hypothyroidism, unspecified (6) Non-Hodgkin lymphoma Current visit: Yes Status: Chronic Qualifiers: Non-Hodgkin lymphoma type: unspecified type Lymphoma site: unspecified region Qualified Code(s): C85.90 - Non-Hodgkin lymphoma, unspecified, unspecified site Category: Medical Code(s): C85.90 - Non-Hodgkin lymphoma, unspecified, unspecified site (7) Type 2 diabetes mellitus Current visit: Yes Status: Chronic Qualifiers: Diabetes mellitus fdc insulin use: with fdc use Diabetes mellitus complication status: with unspecified complications Qualified Code(s): E11.8 - Type 2 diabetes mellitus with unspecified complications; Z79.4 - longterm (current) use of insulin Category: Medical Code(s): E11.9 - Type 2 diabetes mellitus without complications (8) ASCVD (arteriosclerotic cardiovascular disease) Current visit: No Status: Chronic Category: Medical Code(s): I25.10 - Atherosclerotic heart disease of [place] coronary artery without angina pectoris (9) CKD (chronic kidney disease) stage 2, GFR 60-89 ml/min Current visit: No Status: Chronic Category: Medical Code(s): N18.2 - Chronic kidney disease, stage 2 (mild) (10) Chronic CHF Current visit: No Status: Chronic Qualifiers: Heart failure type: unspecified Qualified Code(s): I50.9 - Heart failure, unspecified Category: Medical Code(s): I50.9 - Heart failure, unspecified (11) HTN (hypertension) Current visit: No Status: Chronic Category: Medical Code(s): I10 - Essential (primary) hypertension (12) Dyspnea Current visit: Yes Status: Acute Category: Medical Code(s): R06.00 - Dyspnea, unspecified - Assessment and plan all Dx Assessment and Plan for all problems:: 1. 83-year-old male with complaint of shortness of breath with exertion which is concerning for recurrent angina equivalent in this long-term diabetic with known coronary artery disease on 2 antianginal medications. Would like to obtain a Lexiscan Myoview stress test to evaluate for recurrent coronary artery disease. 2. Continue aspirin and Plavix therapy. 3. Further recommendations to follow pending above results. 4. Recent chest x-ray shows no evidence of pulmonary fibrosis so would therefore continue amiodarone therapy to maintain sinus rhythm and to avoid anticoagulation therapy. Liver and thyroid panel are normal.
[2018-10-21 06:51] LABS: Basophils % 0.3 % (0.1-2.0); Eosinophils # 0.3 K/mm3 (0.0-0.4); Eosinophils % 3.9 % (0.1-12.0); Hematocrit 33.6 % (42.0-52.0); Hemoglobin 10.7 g/dL (14.1-18.0); Lymphocytes # 1.6 K/mm3 (0.7-4.5); Lymphocytes % 23.8 % (10-50); Mean Corpuscular HGB Conc 31.7 g/dL (31.8-35.4); Mean Corpuscular Hemoglobin 28.6 pg (27.0-31.2); Mean Corpuscular Volume 90.2 fl (80-94); Mean Platelet Volume 7.7 fl (7.4-10.4); Monocytes # 0.8 K/mm3 (0.1-1.0); Platelet Count 229 K/mm3 (142-424); Red Blood Count 3.73 M/mm3 (4.60-6.20); Red Cell Distribution Width 15.2 % (11.5-17.5); White Blood Count 6.8 K/mm3 (4.8-10.8)
[2018-10-21 07:01] LABS: Calcium 8.7 mg/dL (8.5-10.1)
--- NOTE | 2018-10-21 08:12 | Progress Note ---
Addendum entered and electronically signed by Ellyn Lynn APRN 10/21/18 08:35: PT consulted Original Note: <Ellyn Lynn - Last Filed: 10/21/18 08:09> Internal Medicine - PN: Subj *Date: 10/21/18 *Time: 08:09 Interval history: Found patient in hallway going down for stress test. He states he had a good day yesterday and did sleep about 3-4 hours last night. He has been eating without difficulty. He said his breathing is good now and he denies chest pain. Renal function has improved Laboratory Tests 10/21/18 06:20 Sodium 143 Potassium 4.0 Chloride 109 H Carbon Dioxide 26 Anion Gap 12.0 BUN 22 H D Creatinine 1.63 H D Estimated Creat Clear 51 Estimated GFR 40 L Est GFR ( Amer) 49 L D Glucose 139 H Calcium 8.7 Exam Vital signs and Labs for Last 24 Hours: Temp Pulse Resp BP Pulse Ox 98.2 F 72 16 155/65 H 94 L 10/21/18 04:00 10/21/18 04:00 10/21/18 04:00 10/21/18 04:00 10/21/18 04:00 Laboratory Results - last 24 hr 10/20/18 04:45: TSH 3.32 D 10/20/18 11:54: POC Glucose 182 H 10/20/18 16:30: POC Glucose 131 H 10/20/18 20:03: POC Glucose 189 H 10/21/18 05:07: POC Glucose 122 H 10/21/18 06:20: WBC 6.8, RBC 3.73 L, Hgb 10.7 L, Hct 33.6 L, MCV 90.2, MCH 28.6, MCHC 31.7 L, RDW 15.2, Plt Count 229, MPV 7.7, Neut % (Auto) 60.0, Lymph % (Auto) 23.8, [place] % (Auto) 12.0 H, Eos % (Auto) 3.9, Baso % (Auto) 0.3, Neut # (Auto) 4.0, Lymph # (Auto) 1.6, [place] # (Auto) 0.8, Eos # (Auto) 0.3, Baso # (Auto) 0.0 10/21/18 06:20: Sodium 143, Potassium 4.0, Chloride 109 H, Carbon Dioxide 26, Anion Gap 12.0, BUN 22 H D, Creatinine 1.63 H D, Estimated Creat Clear 51, Estimated GFR 40 L, Est GFR ( Amer) 49 L D, Glucose 139 H, Calcium 8.7 I & O for Last 24 hours: Intake & Output 10/18/18 10/19/18 10/20/18 10/21/18 11:59 11:59 11:59 11:59 Intake Total 700 / 700 2078 Output Total 300 / 300 Balance 400 / 400 2078 Weight 241 lb 12.8 oz Microbiology Reports for the Last 24 Hours: Microbiology 10/19/18 20:28 Urine,Clean Catch Urine Culture - Final Klebsiella pneumoniae - Constitutional no acute distress Comments: Appears comfortable riding in wheelchair down for stress test - *Routine Respiratory Exam Present: CTA bilaterally (Anteriorly and posteriorly) - *Routine Cardiovascular Exam Present: RRR - *Routine Abdominal Exam Present: soft, normoactive bowel sounds. Absent: tenderness - *Routine Extremities Exam Absent: edema Comments: KORIN lloyd on - *Routine Neurological Exam Present: alert, oriented X3 Assessment and Plan (1) Dehydration Current visit: No Status: Acute Category: Medical Code(s): E86.0 - Dehydration (2) UTI (urinary tract infection) Current visit: Yes Status: Acute Qualifiers: Urinary tract infection type: site unspecified Hematuria presence: without hematuria Qualified Code(s): N39.0 - Urinary tract infection, site not specified Category: Medical Code(s): N39.0 - Urinary tract infection, site not specified (3) Renal failure (ARF), acute on chronic Current visit: Yes Status: Acute Qualifiers: Acute renal failure type: unspecified Chronic kidney disease stage: unspecified stage Qualified Code(s): N17.9 - Acute kidney failure, unspecified; N18.9 - Chronic kidney disease, unspecified Category: Medical Code(s): N17.9 - Acute kidney failure, unspecified; N18.9 - Chronic kidney disease, unspecified (4) History of atrial fibrillation Current visit: Yes Status: Chronic Category: Medical Code(s): Z86.79 - Personal history of other diseases of the circulatory system (5) Hypothyroidism Current visit: Yes Status: Chronic Qualifiers: Hypothyroidism type: acquired Qualified Code(s): E03.9 - Hypothyroidism, unspecified Category: Medical Code(s): E03.9 - Hypothyroidism, unspecified (6) Non-Hodgkin lymphoma Current visit: Yes Status: Chronic Qualifiers: Non-Hodgkin lymphoma type: unspecified type Lymphoma site: unspecified region Qualified Code(s): C85.90 - Non-Hodgkin lymphoma, unspecified, unspecified site Category: Medical Code(s): C85.90 - Non-Hodgkin lymphoma, unspecified, unspecified site (7) Type 2 diabetes mellitus Current visit: Yes Status: Chronic Qualifiers: Diabetes mellitus intermediate manager insulin use: with mcc use Diabetes mellitus complication status: with unspecified complications Qualified Code(s): E11.8 - Type 2 diabetes mellitus with unspecified complications; Z79.4 - skilled nursing (current) use of insulin Category: Medical Code(s): E11.9 - Type 2 diabetes mellitus without complications (8) ASCVD (arteriosclerotic cardiovascular disease) Current visit: No Status: Chronic Category: Medical Code(s): I25.10 - Atherosclerotic heart disease of [place] coronary artery without angina pectoris (9) CKD (chronic kidney disease) stage 2, GFR 60-89 ml/min Current visit: No Status: Chronic Category: Medical Code(s): N18.2 - Chronic kidney disease, stage 2 (mild) (10) Chronic CHF Current visit: No Status: Chronic Qualifiers: Heart failure type: unspecified Qualified Code(s): I50.9 - Heart failure, unspecified Category: Medical Code(s): I50.9 - Heart failure, unspecified (11) HTN (hypertension) Current visit: No Status: Chronic Category: Medical Code(s): I10 - Essential (primary) hypertension (12) Dyspnea Current visit: Yes Status: Acute Category: Medical Code(s): R06.00 - Dyspnea, unspecified - Assessment and plan all Dx Assessment and Plan for all problems:: Having stress test this morning. Will follow cardiology plan. <César White - Last Filed: 10/21/18 22:09> Exam Vital signs and Labs for Last 24 Hours: Temp Pulse Resp BP Pulse Ox 98.5 F 73 17 149/72 H 94 L 10/21/18 20:00 10/21/18 20:00 10/21/18 20:00 10/21/18 20:00 10/21/18 20:00 Laboratory Results - last 24 hr 10/21/18 05:07: POC Glucose 122 H 10/21/18 06:20: WBC 6.8, RBC 3.73 L, Hgb 10.7 L, Hct 33.6 L, MCV 90.2, MCH 28.6, MCHC 31.7 L, RDW 15.2, Plt Count 229, MPV 7.7, Neut % (Auto) 60.0, Lymph % (Auto) 23.8, [place] % (Auto) 12.0 H, Eos % (Auto) 3.9, Baso % (Auto) 0.3, Neut # (Auto) 4.0, Lymph # (Auto) 1.6, [place] # (Auto) 0.8, Eos # (Auto) 0.3, Baso # (Auto) 0.0 10/21/18 06:20: Sodium 143, Potassium 4.0, Chloride 109 H, Carbon Dioxide 26, Anion Gap 12.0, BUN 22 H D, Creatinine 1.63 H D, Estimated Creat Clear 51, Estimated GFR 40 L, Est GFR ( Amer) 49 L D, Glucose 139 H, Calcium 8.7 10/21/18 11:17: POC Glucose 188 H 10/21/18 16:43: POC Glucose 115 H 10/21/18 20:34: POC Glucose 192 H I & O for Last 24 hours: Intake & Output 10/19/18 10/20/18 10/21/18 10/22/18 11:59 11:59 11:59 11:59 Intake Total 700 / 700 2078 2390 / 2390 Output Total 300 / 300 Balance 400 / 400 2078 2390 / 2390 Weight 241 lb 12.8 oz 241 lb Microbiology Reports for the Last 24 Hours: Microbiology 10/19/18 21:30 Blood Blood Culture - Preliminary NO GROWTH AFTER 48 HOURS 10/19/18 21:30 Blood Blood Culture - Preliminary NO GROWTH AFTER 48 HOURS 10/19/18 20:28 Urine,Clean Catch Urine Culture - Final Klebsiella pneumoniae Assessment and Plan (1) Dehydration Current visit: No Status: Acute Category: Medical Code(s): E86.0 - Dehydration (2) UTI (urinary tract infection) Current visit: Yes Status: Acute Qualifiers: Urinary tract infection type: site unspecified Hematuria presence: without hematuria Qualified Code(s): N39.0 - Urinary tract infection, site not specified Category: Medical Code(s): N39.0 - Urinary tract infection, site not specified (3) Renal failure (ARF), acute on chronic Current visit: Yes Status: Acute Qualifiers: Acute renal failure type: unspecified Chronic kidney disease stage: unspecified stage Qualified Code(s): N17.9 - Acute kidney failure, unspecified; N18.9 - Chronic kidney disease, unspecified Category: Medical Code(s): N17.9 - Acute kidney failure, unspecified; N18.9 - Chronic kidney disease, unspecified (4) History of atrial fibrillation Current visit: Yes Status: Chronic Category: Medical Code(s): Z86.79 - Personal history of other diseases of the circulatory system (5) Hypothyroidism Current visit: Yes Status: Chronic Qualifiers: Hypothyroidism type: acquired Qualified Code(s): E03.9 - Hypothyroidism, unspecified Category: Medical Code(s): E03.9 - Hypothyroidism, unspecified (6) Non-Hodgkin lymphoma Current visit: Yes Status: Chronic Qualifiers: Non-Hodgkin lymphoma type: unspecified type Lymphoma site: unspecified region Qualified Code(s): C85.90 - Non-Hodgkin lymphoma, unspecified, unspecified site Category: Medical Code(s): C85.90 - Non-Hodgkin lymphoma, unspecified, unspecified site (7) Type 2 diabetes mellitus Current visit: Yes Status: Chronic Qualifiers: Diabetes mellitus mcc insulin use: with intermediate manager use Diabetes mellitus complication status: with unspecified complications Qualified Code(s): E11.8 - Type 2 diabetes mellitus with unspecified complications; Z79.4 - skilled nursing (current) use of insulin Category: Medical Code(s): E11.9 - Type 2 diabetes mellitus without complications (8) ASCVD (arteriosclerotic cardiovascular disease) Current visit: No Status: Chronic Category: Medical Code(s): I25.10 - Atherosclerotic heart disease of [place] coronary artery without angina pectoris (9) Chronic CHF Current visit: No Status: Chronic Qualifiers: Heart failure type: unspecified Qualified Code(s): I50.9 - Heart failure, unspecified Category: Medical Code(s): I50.9 - Heart failure, unspecified (10) HTN (hypertension) Current visit: No Status: Chronic Category: Medical Code(s): I10 - Essential (primary) hypertension (11) Dyspnea Current visit: Yes Status: Acute Category: Medical Code(s): R06.00 - Dyspnea, unspecified (12) CKD (chronic kidney disease) stage 3, GFR 30-59 ml/min Current visit: Yes Status: Acute Category: Medical Code(s): N18.3 - Chronic kidney disease, stage 3 (moderate) - Assessment and plan all Dx Assessment and Plan for all problems:: Patient seen and examined after his stress test. Results are pending. Other than feeling tired, he state he feels better. Urine culture growing Klebsiella sensitive to Rocephin. Renal function improved with IV fluid hydration. Will await results of stress test and further recommendations per cardiology.
--- NOTE | 2018-10-21 15:05 | Progress Note ---
Subjective Date: 10/21/18 Time: 15:01 Principal diagnosis: Angina equivalent Interval history: 83 yo WM in bed in NAD. Jere myoview shows anterior and inferolateral ischemia which equates to a high risk abnormal stress test. Recommend [facility] tomorrow. Pt agrees. No chest pain or SOA. Exam Vital signs and Labs for Last 24 Hours: Temp Pulse Resp BP Pulse Ox 97.7 F 83 20 175/69 H 94 L 10/21/18 11:52 10/21/18 11:52 10/21/18 11:52 10/21/18 11:52 10/21/18 11:52 Laboratory Results - last 24 hr 10/20/18 16:30: POC Glucose 131 H 10/20/18 20:03: POC Glucose 189 H 10/21/18 05:07: POC Glucose 122 H 10/21/18 06:20: WBC 6.8, RBC 3.73 L, Hgb 10.7 L, Hct 33.6 L, MCV 90.2, MCH 28.6, MCHC 31.7 L, RDW 15.2, Plt Count 229, MPV 7.7, Neut % (Auto) 60.0, Lymph % (Auto) 23.8, [place] % (Auto) 12.0 H, Eos % (Auto) 3.9, Baso % (Auto) 0.3, Neut # (Auto) 4.0, Lymph # (Auto) 1.6, [place] # (Auto) 0.8, Eos # (Auto) 0.3, Baso # (Auto) 0.0 10/21/18 06:20: Sodium 143, Potassium 4.0, Chloride 109 H, Carbon Dioxide 26, Anion Gap 12.0, BUN 22 H D, Creatinine 1.63 H D, Estimated Creat Clear 51, Estimated GFR 40 L, Est GFR ( Amer) 49 L D, Glucose 139 H, Calcium 8.7 10/21/18 11:17: POC Glucose 188 H I & O for Last 24 hours: Intake & Output 10/19/18 10/20/18 10/21/18 10/22/18 11:59 11:59 11:59 11:59 Intake Total 700 / 700 2078 159 / 159 Output Total 300 / 300 Balance 400 / 400 2078 159 / 1599 Weight 241 lb 12.8 oz 241 lb Microbiology Reports for the Last 24 Hours: Microbiology 10/19/18 20:28 Urine,Clean Catch Urine Culture - Final Klebsiella pneumoniae - *Routine HEENT Exam Head: Present: normocephalic Eye: Present: EOMI, PERRL ENT: Present: mucous membranes moist - *Routine Respiratory Exam Present: CTA bilaterally. Absent: accessory muscle use, rales, rhonchi, wheezes - *Routine Cardiovascular Exam Present: RRR. Absent: murmur, gallop, rubs - *Routine Neurological Exam Present: alert, oriented X3, moving all extremities Progress Note: A&P (1) Dehydration Status: Acute Current Visit: No (2) UTI (urinary tract infection) Status: Acute Current Visit: Yes (3) Renal failure (ARF), acute on chronic Status: Acute Current Visit: Yes (4) History of atrial fibrillation Status: Chronic Current Visit: Yes (5) Hypothyroidism Status: Chronic Current Visit: Yes (6) Non-Hodgkin lymphoma Status: Chronic Current Visit: Yes (7) Type 2 diabetes mellitus Status: Chronic Current Visit: Yes (8) ASCVD (arteriosclerotic cardiovascular disease) Status: Chronic Current Visit: No (9) CKD (chronic kidney disease) stage 2, GFR 60-89 ml/min Status: Chronic Current Visit: No (10) Chronic CHF Status: Chronic Current Visit: No (11) HTN (hypertension) Status: Chronic Current Visit: No (12) Dyspnea Status: Acute Current Visit: Yes Assessment and Plan for All Diagnoses:: Continue to hold lasix and use PRN. CKD improved with Cr down to 1.6 today. Recommend [facility] tomorrow. Continue ASA, coreg and plavix. Holding lisinopril due to CKD exacerbation on admission. Consider restarting at lower dose.
[2018-10-22 06:51] LABS: Anion Gap 13.1 mEq/L (5-15); Calcium 8.7 mg/dL (8.5-10.1); Potassium 4.1 mmoL/L (3.5-5.1)
--- NOTE | 2018-10-22 07:46 | Progress Note ---
Addendum entered and electronically signed by GERARD Stuart 10/22/18 12:01: Official report pending but patient did receive coronary stents today. Continue ASA and plavix. GONZÁLEZ inhibitor on hold due to CKD on admission which has improved. Consider restarting in the future if needed for BP and CHF management. Original Note: Subjective Date: 10/22/18 Time: 07:44 Principal diagnosis: Angina equivalent Interval history: 83-year-old white male in bed in no acute distress. No complaints overnight. Exam Vital signs and Labs for Last 24 Hours: Temp Pulse Resp BP Pulse Ox 98.6 F 73 17 148/64 H 91 L 10/22/18 04:00 10/22/18 04:00 10/22/18 04:00 10/22/18 04:00 10/22/18 04:00 Laboratory Results - last 24 hr 10/21/18 11:17: POC Glucose 188 H 10/21/18 16:43: POC Glucose 115 H 10/21/18 20:34: POC Glucose 192 H 10/22/18 05:55: POC Glucose 165 H 10/22/18 06:00: Sodium 143, Potassium 4.1, Chloride 110 H, Carbon Dioxide 24, Anion Gap 13.1, BUN 20 H, Creatinine 1.54 H, Estimated Creat Clear 54, Estimated GFR 43 L, Est GFR ( Amer) 52 L, Glucose 175 H D, Calcium 8.7 I & O for Last 24 hours: Intake & Output 10/19/18 10/20/18 10/21/18 10/22/18 11:59 11:59 11:59 11:59 Intake Total 700 / 700 2078 2898 / 2898 Output Total 300 / 300 Balance 400 / 400 2078 2898 / 2898 Weight 241 lb 12.8 oz 241 lb Microbiology Reports for the Last 24 Hours: Microbiology 10/19/18 21:30 Blood Blood Culture - Preliminary NO GROWTH AFTER 48 HOURS 10/19/18 21:30 Blood Blood Culture - Preliminary NO GROWTH AFTER 48 HOURS 10/19/18 20:28 Urine,Clean Catch Urine Culture - Final Klebsiella pneumoniae - *Routine HEENT Exam Head: Present: normocephalic Eye: Present: EOMI, PERRL ENT: Present: mucous membranes moist - *Routine Respiratory Exam Present: CTA bilaterally. Absent: accessory muscle use, rales, rhonchi, wheezes - *Routine Cardiovascular Exam Present: RRR. Absent: murmur, gallop, rubs - *Routine Extremities Exam Absent: edema, calf tenderness - *Routine Neurological Exam Present: alert, oriented X3, moving all extremities Progress Note: A&P (1) Dehydration Status: Acute Current Visit: No (2) UTI (urinary tract infection) Status: Acute Current Visit: Yes (3) Renal failure (ARF), acute on chronic Status: Acute Current Visit: Yes (4) History of atrial fibrillation Status: Chronic Current Visit: Yes (5) Hypothyroidism Status: Chronic Current Visit: Yes (6) Non-Hodgkin lymphoma Status: Chronic Current Visit: Yes (7) Type 2 diabetes mellitus Status: Chronic Current Visit: Yes (8) ASCVD (arteriosclerotic cardiovascular disease) Status: Chronic Current Visit: No (9) Chronic CHF Status: Chronic Current Visit: No (10) HTN (hypertension) Status: Chronic Current Visit: No (11) Dyspnea Status: Acute Current Visit: Yes (12) CKD (chronic kidney disease) stage 3, GFR 30-59 ml/min Status: Acute Current Visit: Yes Assessment and Plan for All Diagnoses:: Left heart catheterization today due to abnormal stress test and exertional shortness of breath (angina equivalent in this diabetic patient). Patient continues on aspirin, Plavix, amiodarone, amlodipine, carvedilol and atorvastatin therapy. Further recommendations to follow pending results of cardiac cath.
--- NOTE | 2018-10-22 08:17 | Progress Note ---
Internal Medicine - PN: Subj *Date: 10/22/18 *Time: 08:14 Interval history: Pt denies any CP or SOA today. He slept well and has been NPO for heart cath this am. Stress test was abnormal yesterday. Exam Vital signs and Labs for Last 24 Hours: Temp Pulse Resp BP Pulse Ox 98.6 F 73 17 148/64 H 91 L 10/22/18 04:00 10/22/18 04:00 10/22/18 04:00 10/22/18 04:00 10/22/18 04:00 Laboratory Results - last 24 hr 10/21/18 11:17: POC Glucose 188 H 10/21/18 16:43: POC Glucose 115 H 10/21/18 20:34: POC Glucose 192 H 10/22/18 05:55: POC Glucose 165 H 10/22/18 06:00: Sodium 143, Potassium 4.1, Chloride 110 H, Carbon Dioxide 24, Anion Gap 13.1, BUN 20 H, Creatinine 1.54 H, Estimated Creat Clear 54, Estimated GFR 43 L, Est GFR ( Amer) 52 L, Glucose 175 H D, Calcium 8.7 I & O for Last 24 hours: Intake & Output 10/19/18 10/20/18 10/21/18 10/22/18 11:59 11:59 11:59 11:59 Intake Total 700 / 700 2078 2898 / 2898 Output Total 300 / 300 Balance 400 / 400 2078 2898 / 2898 Weight 241 lb 12.8 oz 241 lb Microbiology Reports for the Last 24 Hours: Microbiology 10/19/18 21:30 Blood Blood Culture - Preliminary NO GROWTH AFTER 48 HOURS 10/19/18 21:30 Blood Blood Culture - Preliminary NO GROWTH AFTER 48 HOURS 10/19/18 20:28 Urine,Clean Catch Urine Culture - Final Klebsiella pneumoniae Radiology Reports for the Last 24 Hours: Stress test Reverse redistribution in the mid anterior apical septal wall as well as a portion of the inferolateral wall. This is a high risk abnormal stress test normal ejection fraction wall motion - Constitutional no acute distress - *Routine Respiratory Exam Present: wheezes (faint bilateral). Absent: rales - *Routine Cardiovascular Exam Present: RRR - *Routine Abdominal Exam Present: soft, normoactive bowel sounds. Absent: tenderness - *Routine Extremities Exam Absent: cyanosis, clubbing, edema Assessment and Plan (1) Dehydration Current visit: No Status: Acute Category: Medical Code(s): E86.0 - Dehydration (2) UTI (urinary tract infection) Current visit: Yes Status: Acute Qualifiers: Urinary tract infection type: site unspecified Hematuria presence: without hematuria Qualified Code(s): N39.0 - Urinary tract infection, site not specified Category: Medical Code(s): N39.0 - Urinary tract infection, site not specified (3) Renal failure (ARF), acute on chronic Current visit: Yes Status: Acute Qualifiers: Acute renal failure type: unspecified Chronic kidney disease stage: unspecified stage Qualified Code(s): N17.9 - Acute kidney failure, unspecified; N18.9 - Chronic kidney disease, unspecified Category: Medical Code(s): N17.9 - Acute kidney failure, unspecified; N18.9 - Chronic kidney disease, unspecified (4) History of atrial fibrillation Current visit: Yes Status: Chronic Category: Medical Code(s): Z86.79 - Personal history of other diseases of the circulatory system (5) Hypothyroidism Current visit: Yes Status: Chronic Qualifiers: Hypothyroidism type: acquired Qualified Code(s): E03.9 - Hypothyroidism, unspecified Category: Medical Code(s): E03.9 - Hypothyroidism, unspecified (6) Non-Hodgkin lymphoma Current visit: Yes Status: Chronic Qualifiers: Non-Hodgkin lymphoma type: unspecified type Lymphoma site: unspecified region Qualified Code(s): C85.90 - Non-Hodgkin lymphoma, unspecified, unspecified site Category: Medical Code(s): C85.90 - Non-Hodgkin lymphoma, unspecified, unspecified site (7) Type 2 diabetes mellitus Current visit: Yes Status: Chronic Qualifiers: Diabetes mellitus manager intermediate insulin use: with manager intermediate use Diabetes mellitus complication status: with unspecified complications Qualified Code(s): E11.8 - Type 2 diabetes mellitus with unspecified complications; Z79.4 - termite treater (current) use of insulin Category: Medical Code(s): E11.9 - Type 2 diabetes mellitus without complicat ions (8) ASCVD (arteriosclerotic cardiovascular disease) Current visit: No Status: Chronic Category: Medical Code(s): I25.10 - Atherosclerotic heart disease of [place] coronary artery without angina pectoris (9) Chronic CHF Current visit: No Status: Chronic Qualifiers: Heart failure type: unspecified Qualified Code(s): I50.9 - Heart failure, unspecified Category: Medical Code(s): I50.9 - Heart failure, unspecified (10) HTN (hypertension) Current visit: No Status: Chronic Category: Medical Code(s): I10 - Essential (primary) hypertension (11) Dyspnea Current visit: Yes Status: Acute Category: Medical Code(s): R06.00 - Dyspnea, unspecified (12) CKD (chronic kidney disease) stage 3, GFR 30-59 ml/min Current visit: Yes Status: Acute Category: Medical Code(s): N18.3 - Chronic kidney disease, stage 3 (moderate) (13) UTI due to Klebsiella species Current visit: Yes Status: Acute Category: Medical Code(s): N39.0 - Urinary tract infection, site not specified; B96.1 - Klebsiella pneumoniae [K. pneumoniae] as the cause of diseases classified elsewhere - Assessment and plan all Dx Assessment and Plan for all problems:: Cardiac cath planned for this am.
[2018-10-23 06:45] LABS: Basophils % 0.3 % (0.1-2.0); Eosinophils # 0.1 K/mm3 (0.0-0.4); Eosinophils % 0.7 % (0.1-12.0); Hemoglobin 10.9 g/dL (14.1-18.0); Lymphocytes # 1.9 K/mm3 (0.7-4.5); Lymphocytes % 17.1 % (10-50); Mean Corpuscular HGB Conc 31.3 g/dL (31.8-35.4); Mean Corpuscular Hemoglobin 28.6 pg (27.0-31.2); Mean Corpuscular Volume 91.6 fl (80-94); Mean Platelet Volume 7.8 fl (7.4-10.4); Monocytes % 9.3 % (1.7-9.3); Neutrophils # 8.1 K/mm3 (1.8-7.8); Neutrophils % 72.6 % (37.0-80.0); Platelet Count 240 K/mm3 (142-424); Red Blood Count 3.82 M/mm3 (4.60-6.20); Red Cell Distribution Width 15.2 % (11.5-17.5); White Blood Count 11.1 K/mm3 (4.8-10.8)
[2018-10-23 07:04] LABS: Anion Gap 14.4 mEq/L (5-15); Calcium 8.4 mg/dL (8.5-10.1); Potassium 4.4 mmoL/L (3.5-5.1)
--- NOTE | 2018-10-23 07:56 | Progress Note ---
Internal Medicine - PN: Subj *Date: 10/23/18 *Time: 07:55 Exam Vital signs and Labs for Last 24 Hours: Temp Pulse Resp BP Pulse Ox 98.7 F 93 H 20 163/68 H 94 L 10/23/18 04:00 10/23/18 06:00 10/23/18 06:00 10/23/18 06:00 10/23/18 06:00 Laboratory Results - last 24 hr 10/22/18 10:52: Activated Clotting Time 330 H* 10/22/18 11:10: Activated Clotting Time 292 H* 10/22/18 12:32: POC Glucose 147 H 10/22/18 16:44: POC Glucose 161 H 10/22/18 20:22: POC Glucose 173 H 10/23/18 05:47: POC Glucose 184 H 10/23/18 06:30: WBC 11.1 H D, RBC 3.82 L, Hgb 10.9 L, Hct 35.0 L, MCV 91.6, MCH 28.6, MCHC 31.3 L, RDW 15.2, Plt Count 240, MPV 7.8, Neut % (Auto) 72.6, Lymph % (Auto) 17.1, [place] % (Auto) 9.3, Eos % (Auto) 0.7, Baso % (Auto) 0.3, Neut # (Auto) 8.1 H, Lymph # (Auto) 1.9, [place] # (Auto) 1.0, Eos # (Auto) 0.1, Baso # (Auto) 0.0 10/23/18 06:30: Sodium 139, Potassium 4.4, Chloride 107, Carbon Dioxide 22, Anion Gap 14.4, BUN 16, Creatinine 1.51 H, Estimated Creat Clear 60, Estimated GFR 44 L, Est GFR ( Amer) 53 L, Glucose 197 H, Calcium 8.4 L I & O for Last 24 hours: Intake & Output 10/20/18 10/21/18 10/22/18 10/23/18 23:59 23:59 23:59 23:59 Intake Total 1180 / 1180 3989 / 3989 1538 / 1538 532 / 532 Output Total 300 / 300 Balance 880 / 880 3989 / 3989 1538 / 1538 532 / 532 Weight 109.679 kg 109.316 kg 117.962 kg Assessment and Plan (1) Dehydration Current visit: No Status: Acute Category: Medical Code(s): E86.0 - Dehydration (2) UTI (urinary tract infection) Current visit: Yes Status: Acute Qualifiers: Urinary tract infection type: site unspecified Hematuria presence: without hematuria Qualified Code(s): N39.0 - Urinary tract infection, site not specified Category: Medical Code(s): N39.0 - Urinary tract infection, site not specified (3) Renal failure (ARF), acute on chronic Current visit: Yes Status: Acute Qualifiers: Acute renal failure type: unspecified Chronic kidney disease stage: unspecified stage Qualified Code(s): N17.9 - Acute kidney failure, unspecif ied; N18.9 - Chronic kidney disease, unspecified Category: Medical Code(s): N17.9 - Acute kidney failure, unspecified; N18.9 - Chronic kidney disease, unspecified (4) History of atrial fibrillation Current visit: Yes Status: Chronic Category: Medical Code(s): Z86.79 - Personal history of other diseases of the circulatory system (5) Hypothyroidism Current visit: Yes Status: Chronic Qualifiers: Hypothyroidism type: acquired Qualified Code(s): E03.9 - Hypothyroidism, unspecified Category: Medical Code(s): E03.9 - Hypothyroidism, unspecified (6) Non-Hodgkin lymphoma Current visit: Yes Status: Chronic Qualifiers: Non-Hodgkin lymphoma type: unspecified type Lymphoma site: unspecified region Qualified Code(s): C85.90 - Non-Hodgkin lymphoma, unspecified, unspecified site Category: Medical Code(s): C85.90 - Non-Hodgkin lymphoma, unspecified, unspecified site (7) Type 2 diabetes mellitus Current visit: Yes Status: Chronic Qualifiers: Diabetes mellitus automation and controls supervisor insulin use: with residential use Diabetes mellitus complication status: with unspecified complications Qualified Code(s): E11.8 - Type 2 diabetes mellitus with unspecified complications; Z79.4 - customer project manager (current) use of insulin Category: Medical Code(s): E11.9 - Type 2 diabetes mellitus without complications (8) ASCVD (arteriosclerotic cardiovascular disease) Current visit: No Status: Chronic Category: Medical Code(s): I25.10 - Atherosclerotic heart disease of [place] coronary artery without angina pectoris (9) Chronic CHF Current visit: No Status: Chronic Qualifiers: Heart failure type: unspecified Qualified Code(s): I50.9 - Heart failure, unspecified Category: Medical Code(s): I50.9 - Heart failure, unspecified (10) HTN (hypertension) Current visit: No Status: Chronic Category: Medical Code(s): I10 - Essential (primary) hypertension (11) Dyspnea Current visit: Yes Status: Acute Category: Medical Code(s): R06.00 - Dyspnea, unspecified (12) CKD (chronic kidney disease) stage 3, GFR 30-59 ml/min Current visit: Yes Status: Acute Category: Medical Code(s): N18.3 - Chronic kidney disease, stage 3 (moderate) (13) UTI due to Klebsiella species Current visit: Yes Status: Acute Category: Medical Code(s): N39.0 - Urinary tract infection, site not specified; B96.1 - Klebsiella pneumoniae [K. pneumoniae] as the cause of diseases classified elsewhere The patient's infection will respond to the chosen ABx?: Yes Is the patient receiving the right drug, dose, and route?: Yes Could a more targeted ABx be ordered?: No (KLEBSIELLA SENSITIVE TO ROCEPHIN)
--- NOTE | 2018-10-23 08:13 | Progress Note ---
Internal Medicine - PN: Subj *Date: 10/23/18 *Time: 08:10 Interval history: Patient states he is feeling well this morning. He denies any chest pain. He still has some shortness of breath and mild wheezing. He states his hands have been swollen from IV sites and numerous blood draws. He did rest decently well last night and ate some breakfast this morning. Exam Vital signs and Labs for Last 24 Hours: Temp Pulse Resp BP Pulse Ox 98.7 F 93 H 20 163/68 H 94 L 10/23/18 04:00 10/23/18 06:00 10/23/18 06:00 10/23/18 06:00 10/23/18 06:00 Laboratory Results - last 24 hr 10/22/18 10:52: Activated Clotting Time 330 H* 10/22/18 11:10: Activated Clotting Time 292 H* 10/22/18 12:32: POC Glucose 147 H 10/22/18 16:44: POC Glucose 161 H 10/22/18 20:22: POC Glucose 173 H 10/23/18 05:47: POC Glucose 184 H 10/23/18 06:30: WBC 11.1 H D, RBC 3.82 L, Hgb 10.9 L, Hct 35.0 L, MCV 91.6, MCH 28.6, MCHC 31.3 L, RDW 15.2, Plt Count 240, MPV 7.8, Neut % (Auto) 72.6, Lymph % (Auto) 17.1, [place] % (Auto) 9.3, Eos % (Auto) 0.7, Baso % (Auto) 0.3, Neut # (Auto) 8.1 H, Lymph # (Auto) 1.9, [place] # (Auto) 1.0, Eos # (Auto) 0.1, Baso # (Auto) 0.0 10/23/18 06:30: Sodium 139, Potassium 4.4, Chloride 107, Carbon Dioxide 22, Anion Gap 14.4, BUN 16, Creatinine 1.51 H, Estimated Creat Clear 60, Estimated GFR 44 L, Est GFR ( Amer) 53 L, Glucose 197 H, Calcium 8.4 L I & O for Last 24 hours: Intake & Output 10/20/18 10/21/18 10/22/18 10/23/18 11:59 11:59 11:59 11:59 Intake Total 700 / 700 2078 2898 / 2898 1562 / 1562 Output Total 300 / 300 Balance 400 / 400 2078 2898 / 2898 1562 / 1562 Weight 241 lb 12.8 oz 241 lb 260 lb 1 oz Radiology Reports for the Last 24 Hours: IMPRESSION: 1. Severe to critical disease as described above 2. Successful stenting of the left main artery ostial proximal LAD and ostial proximal dominant circumflex artery with 4 drug-eluting stents as described above 3. Preserved ejection fraction 4. Mildly elevated LVEDP PLAN: 1. Aspirin Plavix 2. IV fluids overnight with plans to recheck creatinine in the morning 3. LDL less than 55 4. Cardiac rehabilitation 5. Aggressive risk factor modification - Constitutional no acute distress - *Routine Respiratory Exam Present: wheezes (expiratory). Absent: rales - *Routine Cardiovascular Exam Present: RRR - *Routine Abdominal Exam Present: soft, normoactive bowel sounds. Absent: tenderness - *Routine Extremities Exam Present: edema (bilateral hands, LE's without edema) Assessment and Plan (1) Dehydration Current visit: No Status: Acute Category: Medical Code(s): E86.0 - Dehydration (2) UTI (urinary tract infection) Current visit: Yes Status: Acute Qualifiers: Urinary tract infection type: site unspecified Hematuria presence: without hematuria Qualified Code(s): N39.0 - Urinary tract infection, site not specified Category: Medical Code(s): N39.0 - Urinary tract infection, site not specified (3) Renal failure (ARF), acute on chronic Current visit: Yes Status: Acute Qualifiers: Acute renal failure type: unspecified Chronic kidney disease stage: unspecified stage Qualified Code(s): N17.9 - Acute kidney failure, unspecified; N18.9 - Chronic kidney disease, unspecified Category: Medical Code(s): N17.9 - Acute kidney failure, unspecified; N18.9 - Chronic kidney disease, unspecified (4) History of atrial fibrillation Current visit: Yes Status: Chronic Category: Medical Code(s): Z86.79 - Personal history of other diseases of the circulatory system (5) Hypothyroidism Current visit: Yes Status: Chronic Qualifiers: Hypothyroidism type: acquired Qualified Code(s): E03.9 - Hypothyroidism, unspecified Category: Medical Code(s): E03.9 - Hypothyroidism, unspecified (6) Non-Hodgkin lymphoma Current visit: Yes Status: Chronic Qualifiers: Non-Hodgkin lymphoma type: unspecified type Lymphoma site: unspecified region Qualified Code(s): C85.90 - Non-Hodgkin lymphoma, unspecified, unspecified site Category: Medical Code(s): C85.90 - Non-Hodgkin lymphoma, unspecified, unspecified site (7) Type 2 diabetes mellitus Current visit: Yes Status: Chronic Qualifiers: Diabetes mellitus buttermilk drier operator insulin use: with buttermilk drier operator use Diabetes mellitus complication status: with unspecified complications Qualified Code(s): E11.8 - Type 2 diabetes mellitus with unspecified complications; Z79.4 - salvage determiner (current) use of insulin Category: Medical Code(s): E11.9 - Type 2 diabetes mellitus without complications (8) ASCVD (arteriosclerotic cardiovascular disease) Current visit: No Status: Chronic Category: Medical Code(s): I25.10 - Atherosclerotic heart disease of [place] coronary artery without angina pectoris (9) Chronic CHF Current visit: No Status: Chronic Qualifiers: Heart failure type: unspecified Qualified Code(s): I50.9 - Heart failure, unspecified Category: Medical Code(s): I50.9 - Heart failure, unspecified (10) HTN (hypertension) Current visit: No Status: Chronic Category: Medical Code(s): I10 - Essential (primary) hypertension (11) Dyspnea Current visit: Yes Status: Acute Category: Medical Code(s): R06.00 - Dyspnea, unspecified (12) CKD (chronic kidney disease) stage 3, GFR 30-59 ml/min Current visit: Yes Status: Acute Category: Medical Code(s): N18.3 - Chronic kidney disease, stage 3 (moderate) (13) UTI due to Klebsiella species Current visit: Yes Status: Acute Category: Medical Code(s): N39.0 - Urinary tract infection, site not specified; B96.1 - Klebsiella pneumoniae [K. pneumoniae] as the cause of diseases classified elsewhere (14) Status post coronary artery stent placement Current visit: Yes Status: Acute Category: Surgical Code(s): Z95.5 - Presence of coronary angioplasty implant and graft - Assessment and plan all Dx Assessment and Plan for all problems:: Cardiology to see patient this morning. If patient is discharged home, he will need cefuroxime for his Klebsiella UTI and a decreased dose of lisinopril and Lasix as per Dr. White. Will discuss further care with Dr. yuen as he is seeing the patient while Dr. White is off.
--- NOTE | 2018-10-26 12:49 | Discharge Summary ---
General - General Admission date:: 10/19/18 Discharge date: 10/23/18 HPI HPI: Mr. Lopez is a 83-year-old male with a history of CVA, atrial fibrillation, known carotid artery disease, non-Hodgkin's lymphoma in remission, hypertension, hyperlipidemia, DVT/PE, ASCVD, PVD, type 2 diabetes mellitus, hypothyroidism and renal insufficiency who was brought to the [facility] emergency room by his daughter via private vehicle due to progressive weakness associated with shortness of breath and lightheadedness. Patient denied having chest pain and palpitations. He has been eating normally without problems. Bowels are moving regularly. He was treated last week for Klebsiella urinary tract infection with Cipro. He states he has been voiding normally since then. He denies fever, cough, and other respiratory symptoms. With evaluation in the emergency room he was given a liter of IV fluids and started on IV Rocephin. He was admitted for further evaluation and treatment. Chest x-ray showed nothing acute. CT of the head showed nothing acute. This a.m. patient is comfortable sitting on the side of the bed. He denies shortness of breath, chest pain, and heart palpitations. He states he did not sleep at all during the night due to the new environment and noises. Hospital Course Hospital Course: The patient was continued on IV Rocephin for a UTI. He was placed on a cardiac tech and an echo was ordered. Most of his home medications were ordered and his lisinopril was discontinued due to renal function. Cardiology was consulted and they felt the patient would need a stress test. His urine culture was growing Klebsiella which was sensitive to Rocephin, therefore this was continued. His renal function improved with IV fluid hydration. The patient had an abnormal stress test and therefore cardiology wanted to perform a heart cath. The patient received 4 stents and cardiology wanted him to continue on aspirin, Plavix, and to attend cardiac rehabilitation. The patient tolerated the procedure well and had no further chest pain. He did have some mild shortness of breath with some wheezing. He was able to rest well and tolerated a diet. He was stable to be discharged home on cefdinir for his Klebsiella UTI. He will follow-up with cardiology and with Dr. White in the office. Objective Vital signs: Temp Pulse Resp BP Pulse Ox 98.7 F 90 20 163/68 H 88 L 10/23/18 04:00 10/23/18 08:00 10/23/18 08:00 10/23/18 06:00 10/23/18 08:00 Narrative: - Constitutional no acute distress, obese Comments: Patient appears comfortable. Sitting on the bedside completing his breakfast. - *Routine HEENT Exam Head: Present: normocephalic, atraumatic Eye: Present: PERRL. Absent: conjunctival icterus, scleral injection ENT: Present: mucous membranes moist, oropharynx clear - *Routine Neck Exam Present: supple, carotid bruit (Bilaterally). Absent: lymphadenopathy, thyromegaly, tenderness - *Routine Respiratory Exam Present: CTA bilaterally (Anteriorly and posteriorly) - *Routine Cardiovascular Exam Present: RRR (No ectopy heard. Heart rate in the 90s) - *Routine Abdominal Exam Present: soft, normoactive bowel sounds, surgical scars. Absent: tenderness, guarding Comments: Obese - *Routine Extremities Exam Present: edema (Trace to 1+), pulses intact. Absent: calf tenderness - *Routine Neurological Exam Present: alert, oriented X3, CN II-XII intact, moving all extremities, normal speech DS: Diagnosis - Discharge Diagnosis (1) Dehydration Status: Acute (2) UTI (urinary tract infection) Status: Acute (3) Renal failure (ARF), acute on chronic Status: Acute (4) History of atrial fibrillation Status: Chronic (5) Hypothyroidism Status: Chronic (6) Non-Hodgkin lymphoma Status: Chronic (7) Type 2 diabetes mellitus Status: Chronic (8) ASCVD (arteriosclerotic cardiovascular disease) Status: Chronic (9) Chronic CHF Status: Chronic (10) HTN (hypertension) Status: Chronic (11) Dyspnea Status: Acute (12) CKD (chronic kidney disease) stage 3, GFR 30-59 ml/min Status: Acute (13) UTI due to Klebsiella species Status: Acute (14) Status post coronary artery stent placement Status: Acute Discharge Plan - Patient Discharge Instructions ACTIVITY: Limited activity DIET: low fat, low cholesterol Patient Instructions: Heart-Healthy Diet, DI for Kidney Failure, DI for Cardiac Catheterization, DI for Urinary Tract Infection (UTI), DI for Surgical Site Infection - Follow up Plan Follow up with: Stephane Agee MD [Staff Physician] - (as scheduled) Disposition: Home Health Service Home Medications: Home Medications Medication Instructions Recorded Confirmed Type Atorvastatin Calcium [Atorvastatin 20 mg PO HS 10/26/17 10/19/18 History 20mg Tab] Carvedilol [Carvedilol 6.25mg Tab] 6.25 mg PO TID 10/26/17 10/19/18 History Clopidogrel Bisulfate [Plavix 75mg 75 mg PO DAILY 10/26/17 10/19/18 History Tab] Glimepiride 4 mg PO DAILY 10/26/17 10/19/18 History Lisinopril [Lisinopril 40mg Tablet] 40 mg PO BID 10/26/17 10/19/18 History Mirtazapine [Remeron 15mg tablet] 15 mg PO HS 10/26/17 10/19/18 History Tamsulosin HCl [Flomax 0.4mg 0.4 mg PO DAILY 10/26/17 10/19/18 History capsule] Pantoprazole Sodium [Protonix 40mg 40 mg PO DAILY 10/27/17 10/19/18 History tablet] Cholecalciferol (Vitamin D3) 2,000 units PO DAILY 10/28/17 10/19/18 History [Vitamin D3] furosemide 40 mg tablet 40 mg PO DAILY tab 11/11/17 10/19/18 History levothyroxine 75 mcg capsule 75 mcg PO DAILY cap 11/11/17 10/19/18 History aspirin 325 mg tablet 325 mg PO DAILY 05/19/18 10/19/18 History multivitamin tablet 1 tab PO DAILY 05/19/18 10/19/18 History Amlodipine Besylate [Amlodipine 10 mg PO DAILY 10/19/18 10/19/18 History 10mg Tab] Sitagliptin Phosphate [Januvia 25 mg PO DAILY 10/19/18 10/19/18 History 25mg Tablet] Vit D3-Vit K/Berberine/Hops 1 each PO DAILY 10/19/18 10/19/18 History [Ostera Tablet] Amiodarone HCl [Cordarone 200mg 200 mg PO DAILY 10/20/18 10/20/18 History tablet] Cetirizine HCl [Zyrtec] 10 mg PO DAILY 10/20/18 10/20/18 History Cefdinir [Omnicef 300mg Capsule] 300 mg PO BID #14 cap 10/23/18 Rx Prescriptions/Medication Reconciliation: New Cefdinir [Omnicef 300mg Capsule] 300 mg PO BID #14 cap Continue furosemide 40 mg tablet 40 mg PO DAILY tab levothyroxine 75 mcg capsule 75 mcg PO DAILY cap aspirin 325 mg tablet 325 mg PO DAILY multivitamin tablet 1 tab PO DAILY Tamsulosin HCl [Flomax 0.4mg capsule] 0.4 mg PO DAILY Mirtazapine [Remeron 15mg tablet] 15 mg PO HS Lisinopril [Lisinopril 40mg Tablet] 40 mg PO BID Glimepiride 4 mg PO DAILY Clopidogrel Bisulfate [Plavix 75mg Tab] 75 mg PO DAILY Carvedilol [Carvedilol 6.25mg Tab] 6.25 mg PO TID Atorvastatin Calcium [Atorvastatin 20mg Tab] 20 mg PO HS Pantoprazole Sodium [Protonix 40mg tablet] 40 mg PO DAILY Sitagliptin Phosphate [Januvia 25mg Tablet] 25 mg PO DAILY Vit D3-Vit K/Berberine/Hops [Ostera Tablet] 1 each PO DAILY Cetirizine HCl [Zyrtec] 10 mg PO DAILY Amiodarone HCl [Cordarone 200mg tablet] 200 mg PO DAILY Cholecalciferol (Vitamin D3) [Vitamin D3] 2,000 units PO DAILY Amlodipine Besylate [Amlodipine 10mg Tab] 10 mg PO DAILY
== END 2018-10-23 13:16 | disposition home health service (06) ==
LOC: 2ND 20:01 → ER 20:01 → 2ND 22:36
PROVIDERS: ADMIT Emergency Medicine; ATTEND Family Medicine
DX: I50.9 Heart failure, unspecified; E03.9 Hypothyroidism, unspecified; Z79.899 Other long term (current) drug therapy; E86.0 Dehydration; I48.91 Unspecified atrial fibrillation; Z79.84 Long term (current) use of oral hypoglycemic drugs; C85.80 Other specified types of non-Hodgkin lymphoma, unspecified site; Z88.8 Allergy status to other drugs, medicaments and biological substances; E11.22 Type 2 diabetes mellitus with diabetic chronic kidney disease; Z87.891 Personal history of nicotine dependence; Z79.02 Long term (current) use of antithrombotics/antiplatelets; Z95.5 Presence of coronary angioplasty implant and graft; N18.3 Chronic kidney disease, stage 3 (moderate); Z79.82 Long term (current) use of aspirin; B96.1 Klebsiella pneumoniae [K. pneumoniae] as the cause of diseases classified elsewhere; Z88.0 Allergy status to penicillin; I69.359 Hemiplegia and hemiparesis following cerebral infarction affecting unspecified side; N39.0 Urinary tract infection, site not specified; J44.9 Chronic obstructive pulmonary disease, unspecified; N17.9 Acute kidney failure, unspecified; I13.0 Hypertensive heart and chronic kidney disease with heart failure and stage 1 through stage 4 chronic kidney disease, or unspecified chronic kidney disease; I25.10 Atherosclerotic heart disease of native coronary artery without angina pectoris
CPT/HCPCS: 36415; 70450; 71020; 71046; 78452; 80048; 80053; 81001; 82962; 83605; 83735; 84443; 84484; 85025; 85347; 87040; 87086; 87088; 87186; 92928; 93005; 93017; 93306; 93458; 96365; 96367; 97116; 97163; 97530; 99152; 99153; 99284; A9502; C1725; C1760; C1769; C1876; C1894; C9600; G0378; J1644; J2785; Q9966

== ENCOUNTER 2019-01-13 23:21 | Observation (INO) ==
--- NOTE | 2019-01-14 | Emergency Department Note ---
ED Disposition Clinical Impression: Obesity (BMI 30-39.9) CAP (community acquired pneumonia) Qualifiers: Laterality: right Lung location: lower lobe of lung Qualified Code(s): J18.1 - Lobar pneumonia, unspecified organism Type 2 diabetes mellitus Qualifiers: Diabetes mellitus skilled nursing insulin use: with intermediate designer use Diabetes mellitus complication status: with unspecified complications Qualified Code(s): E11.8 - Type 2 diabetes mellitus with unspecified complications; Z79.4 - FDC (current) use of insulin Hypothyroidism Qualifiers: Hypothyroidism type: acquired Qualified Code(s): E03.9 - Hypothyroidism, unspecified Renal failure (ARF), acute on chronic Qualifiers: Acute renal failure type: unspecified Chronic kidney disease stage: stage 3 (moderate) Qualified Code(s): N17.9 - Acute kidney failure, unspecified; N18.3 - Chronic kidney disease, stage 3 (moderate) Disposition: Admitted as Observation Condition on Discharge: Fair - Critical Care Critical Care Time: No Attestation: On 01/13/19, the high probability of a clinically significant, sudden or life threatening deterioration of the following system(s) required my full and direct attention, intervention and personal management. The time I documented below is in addition to time spent performing reported procedures but includes the following listed in this critical care notation. Medical Decision Making - Medical Records Medical records reviewed: Yes: I reviewed the patient's medical records. - Vinny Inquiry Pt receiving controlled substance: No Vital Signs: 01/13/19 23:29 01/14/19 00:31 01/14/19 01:02 Temperature 100.4 F H 99.0 F Temperature Source Oral Oral Pulse Rate [Right Brachial] 83 65 68 Respiratory Rate 22 20 20 Blood Pressure [Right Arm] 132/45 L 109/59 L 111/62 Blood Pressure Mean [Right Arm] 74 75 78 Blood Pressure Source [Right Arm] Automatic Cuff Automatic Cuff Automatic Cuff Blood Pressure Position [Right Arm] Sitting Sitting Sitting 02 Sat by Pulse Oximetry 94 L 94 L 93 L Oxygen Delivery Method Room Air Room Air Room Air 01/14/19 02:30 Temperature 98.3 F Temperature Source Oral Pulse Rate [Right Brachial] 67 Respiratory Rate 20 Blood Pressure [Right Arm] 100/57 L Blood Pressure Mean [Right Arm] 71 Blood Pressure Source [Right Arm] Blood Pressure Position [Right Arm] 02 Sat by Pulse Oximetry 92 L Oxygen Delivery Method Room Air - Lab Data Lab results reviewed: Yes: I reviewed the patient's lab results. Lab Results 01/13/19 23:50: WBC 16.3 H, RBC 4.21 L, Hgb 11.5 L, Hct 36.4 L, MCV 86.5, MCH 27.4, MCHC 31.7 L, RDW 17.4, Plt Count 230, MPV 8.6, Neut % (Auto) 77.5, Lymph % (Auto) 12.6, Alpine % (Auto) 8.3, Eos % (Auto) 1.4, Baso % (Auto) 0.2, Neut # (Auto) 12.6 H, Lymph # (Auto) 2.1, Alpine # (Auto) 1.3 H, Eos # (Auto) 0.2, Baso # (Auto) 0.0, Total Counted 100, Neutrophils % (Manual) 87 H, Lymphocytes % (Manual) 11, Monocytes % (Manual) 1 L, Eosinophils % (Manual) 1, Platelet Estimate Normal, Anisocytosis 1+, Ovalocytes 1+ 01/13/19 23:50: Sodium 138, Potassium 3.7, Chloride 101, Carbon Dioxide 26, Anion Gap 14.7, BUN 38 H, Creatinine 2.45 H, Estimated Creat Clear 35, Estimated GFR 25 L, Est GFR ( Amer) 31 L, Glucose 114 H, Calcium 8.7, Total Bilirubin 0.8, AST 19, ALT 32, Alkaline Phosphatase 94, Total Protein 7.5, Albumin 3.3 L, Globulin 4.2 H, Albumin/Globulin Ratio 0.8 L 01/13/19 23:50: Lactate 1.7 01/14/19 00:00: ESR 35 H 01/14/19 01:59: C-Reactive Protein 6.9 H Result diagrams: 01/13/19 23:50 01/13/19 23:50 Orders (Tests/Meds): ED MEDICATIONS Generic Name Dose Route Start Last Admin Trade Name Freq PRN Reason Stop Dose Admin Sodium Chloride 1,000 mls @ 250 mls/hr 01/14/19 01:45 01/14/19 01:40 Sod Chlor 0.9% 1000ml Bag IV 01/14/19 05:44 250 mls/hr .Q4H YOAV Administration Ceftriaxone Sodium 1 gm/ 50 mls @ 100 mls/hr 01/14/19 03:15 01/14/19 03:23 Sodium Chloride IV 01/28/19 03:14 100 mls/hr Q24H YOAV Administration Protocol Azithromycin 500 mg/ Sodium 250 mls @ 250 mls/hr 01/14/19 03:15 Chloride IV 01/28/19 03:14 Q24H YOAV Protocol Sodium Chloride 3 ml 01/14/19 02:36 Sodium Chloride 3% 15ml Neb IH 02/13/19 02:35 ONCE PRN INDUCE SPUTUM COLLECTION Discontinued Medications Generic Name Dose Route Start Last Admin Trade Name Freq PRN Reason Stop Dose Admin Acetaminophen 500 mg 01/13/19 23:45 01/13/19 23:57 Tylenol 500mg Tablet PO 01/13/19 23:46 500 mg ONCE ONE Administration Methylprednisolone Sodium Succinate 125 mg 01/14/19 01:31 01/14/19 01:40 Solu-Medrol 125mg/2ml Vial IV 01/14/19 01:32 125 mg ONCE ONE Administration ORDERS Category Date Time Status XR chest portable Stat Exams 01/14/19 01:32 Taken Blood Culture Stat Micro 01/13/19 23:50 Received Sputum Culture & Gram Stain Stat Micro 01/14/19 02:40 Received - Radiology Data #1 Image(s): Chest Image Reviewed: Yes I reviewed the patient's radiology image Preliminary Findings: Abnormal (rt cap) - Physician Consults Physician Consulted: henri Reason -: Admission Resp/SOB HPI - General Chief Complaint: Upper Respiratory Infection Stated Complaint: Coughing two days, weak Time Seen by Provider: 01/13/19 23:40 Mode of Arrival: Family Vehicle Source of Information: Patient, Spouse, Medical Record Limitations: No Limitations Description of Symptoms (Recalled from ER Triage Doc. by RN): Pt c/o cough that started last night and weakness. Denies any cp or SOA. - History of Present Illness over the last few days has cough with sputum and low grade temp - feels weak and presented for zoë VICENTE Complaint: cough Onset (ago): day(s) Severity: moderate Known history of: diabetes Associated symptoms: denies other symptoms Treatment prior to arrival: none - Related Data Home oxygen amount: none Home Medications Medication Instructions Recorded Confirmed Clopidogrel Bisulfate [Plavix 75mg 75 mg PO DAILY 10/26/17 11/04/18 Tab] Glimepiride 4 mg PO DAILY 10/26/17 11/04/18 Lisinopril [Lisinopril 40mg Tablet] 40 mg PO BID 10/26/17 11/04/18 Mirtazapine [Remeron 15mg tablet] 15 mg PO HS 10/26/17 11/04/18 Tamsulosin HCl [Flomax 0.4mg 0.4 mg PO DAILY 10/26/17 11/04/18 capsule] Pantoprazole Sodium [Protonix 40mg 40 mg PO DAILY 10/27/17 11/04/18 tablet] Cholecalciferol (Vitamin D3) 2,000 units PO DAILY 10/28/17 11/04/18 [Vitamin D3] furosemide 40 mg tablet 40 mg PO DAILY tab 11/11/17 11/04/18 levothyroxine 75 mcg capsule 75 mcg PO DAILY cap 11/11/17 11/04/18 aspirin 325 mg tablet 325 mg PO DAILY 05/19/18 11/04/18 multivitamin tablet 1 tab PO DAILY 05/19/18 11/04/18 Amlodipine Besylate [Amlodipine 10 mg PO DAILY 10/19/18 10/19/18 10mg Tab] Sitagliptin Phosphate [Januvia 25 mg PO DAILY 10/19/18 11/04/18 25mg Tablet] Vit D3-Vit K/Berberine/Hops 1 each PO DAILY 10/19/18 11/04/18 [Ostera Tablet] Amiodarone HCl [Cordarone 200mg 200 mg PO DAILY 10/20/18 11/04/18 tablet] Cetirizine HCl [Zyrtec] 10 mg PO DAILY 10/20/18 11/04/18 Previous Rx's Medication Instructions Recorded atorvastatin 20 mg tablet 20 mg PO HS #30 tab 10/30/18 carvedilol 6.25 mg tablet 6.25 mg PO TID 30 Days #90 tab 10/30/18 Allergies Allergy/AdvReac Type Severity Reaction Status Date / Time meloxicam Allergy Unknown Verified 01/13/19 23:36 Penicillins Allergy Unknown Verified 01/13/19 23:36 [facility] History - Hepatitis A Screen Drug use history?: No High risk sexual behaviors?: No History of sexually transmitted infection?: No Currently employed?: No Childcare worker?: No Do you have indoor plumbing?: Yes Do you have electricity?: Yes Attestation statement:: This patient has been screened for Hepatitis A risk factors. I have reviewed the patient's past medical history: Yes Medical History: Reports:: Arrhythmia, Atherosclerotic Heart Disease, Atrial Fibrillation, BPH, Cancer, Chronic Obstructive Pulmonary Disease (COPD), Coronary Artery Disease, Cerebrovascular Accident, Deep Vein Thrombosis, Diabetes Mellitus Type 2, Gastroesophageal Reflux Disease(GERD), Hyperlipidemia, Hypertension, Peripheral Artery Disease, Peripheral Vascular Disease, Renal Insufficiency Denies:: Dementia, Depression, Diabetes Mellitus Type 1, Internal Pacemaker, MRSA, Seizures Other Medical History: Reports: Arthritis, Cataracts, Hypothyroidism, Thyroid Disease, Other Laterality Cases: Left: Carotid Endarterectomy Other Surgeries: Yes: Cardiac Catheterization, Cholecystectomy, Colonoscopy, Colon Resection, Coronary Stent, Other (Carotid Endarterectomy). No: Pacemaker Amputation: No Fractures: No Comment: Coronary stents in 2015; stents in leg; cholecystectomy; 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) - Social History Smoking Status: Former smoker #Yrs smoked (if former smoker): 40 Alcohol Intake: never Alcohol Intake Frequency:: other Substance Use Type: denies use Occupational Status: retired Housing: house Household Members: children - Psychiatric History Expresses thoughts of harming self/others: None Suicide Plan Description: No Plan Pschychiatric History:: Denies:: Depression Family Hx:: Cancer ROS Obtained: Yes All systems reviewed & no additional complaints - Constitutional Constitutional: Denies fever(s), Reports weakness - Eyes Eyes: Denies change in vision - ENT Ears, Nose, Mouth, and Throat: Reports nasal congestion, Reports sore throat - Cardiovascular Cardiovascular: Denies chest pain - Respiratory Respiratory: Yes cough, Yes non-productive cough, No coughing up blood - Gastrointestinal Gastrointestingal: Denies: vomiting - Genitourinary Male Genitourinary: Denies hematuria - Musculoskeletal Musculoskeletal: Denies joint swelling - Integumentary/Breasts Skin/Breast: Denies rash - Neurologic Neurologic: Denies seizure-like activity Physical Exam - General General appearance: alert, obese - Head Head exam: normocephalic - Eye Eye exam: Present: PERRL, EOMI. Absent: scleral icterus - ENT ENT exam: Present: mucous membranes dry - Neck Neck exam: Present: trachea midline - Respiratory Respiratory exam: Present: other (bilat rhonchi ). Absent: respiratory distress - Cardiovascular Cardiovascular exam: Present: regular rate, systolic murmur, +S4 - Abdominal Exam Abdominal exam: Present: soft - Extremities Exam Extremities exam: Present: pedal edema. Absent: calf tenderness - Neurological Exam Neurological exam: Present: alert, oriented X3, CN II-XII intact - Psychiatric Psychiatric exam: Present: normal affect - Skin Skin exam: Absent: rash
[2019-01-14 00:29] LABS: Basophils % 0.2 % (0.1-2.0); Eosinophils # 0.2 K/mm3 (0.0-0.4); Eosinophils % 1.4 % (0.1-12.0); Hematocrit 36.4 % (42.0-52.0); Hemoglobin 11.5 g/dL (14.1-18.0); Lymphocytes # 2.1 K/mm3 (0.7-4.5); Lymphocytes % 12.6 % (10-50); Mean Corpuscular HGB Conc 31.7 g/dL (31.8-35.4); Mean Corpuscular Hemoglobin 27.4 pg (27.0-31.2); Mean Corpuscular Volume 86.5 fl (80-94); Mean Platelet Volume 8.6 fl (7.4-10.4); Monocytes # 1.3 K/mm3 (0.1-1.0); Monocytes % 8.3 % (1.7-9.3); Neutrophils # 12.6 K/mm3 (1.8-7.8); Neutrophils % 77.5 % (37.0-80.0); Platelet Count 230 K/mm3 (142-424); Red Blood Count 4.21 M/mm3 (4.60-6.20); Red Cell Distribution Width 17.4 % (11.5-17.5); White Blood Count 16.3 K/mm3 (4.8-10.8)
[2019-01-14 00:40] LABS: Albumin Level 3.3 gm/dL (3.4-5.0); Albumin/Globulin Ratio 0.8 (1.1-1.8); Anion Gap 14.7 mEq/L (5-15); Bilirubin,Total 0.8 mg/dL (0.2-1.0); Calcium 8.7 mg/dL (8.5-10.1); Globulin 4.2 gm/dl (1.3-3.2); Potassium 3.7 mmoL/L (3.5-5.1); Total Protein,Serum 7.5 gm/dL (6.4-8.2)
[2019-01-14 01:12] LABS: Anisocytosis 1+; Eosinophils % 1 % (0-3); Lymphocytes % 11 % (10-50); Monocytes % 1 % (2-9); Neutrophils % 87 % (42-76); Ovalocytes 1+; Total Cells Counted 100
--- NOTE | 2019-01-14 07:25 | Pharmacy Consult Notes ---
[facility] Pharmacy VTE Monitoring - Patient Demographics Admission date: 01/13/19 Report Date: 01/14/19 Time: 07:25 Allergies/Adverse Reactions: Patient Allergies meloxicam Allergy (Unknown, Verified 01/13/19 23:36) Penicillins Allergy (Unknown, Verified 01/13/19 23:36) Height: 1.78 m Weight: 111.3 kg Patient Problems: Current Active Problems (Updated 01/14/19 @ 03:34 by Diego Nichols MD) Hypothyroidism (Chronic) Type 2 diabetes mellitus (Chronic) Renal failure (ARF), acute on chronic (Acute) CAP (community acquired pneumonia) (Acute) Obesity (BMI 30-39.9) (Acute) - VTE Risk Labs: VTE Related Lab Results Hgb 11.5 g/dL (14.1-18.0) L 01/13/19 23:50 Hct 36.4 % (42.0-52.0) L 01/13/19 23:50 Plt Count 230 K/mm3 (142-424) 01/13/19 23:50 BUN 38 mg/dL (7-18) H 01/13/19 23:50 Creatinine 2.45 mg/dL (0.70-1.30) H 01/13/19 23:50 Estimated Creat Clear 35 mL/min (50-200) 01/13/19 23:50 Was VTE Risk Assessment Performed: Yes VTE Score: 8 VTE Risk Level: Moderate Risk - Prophylaxis VTE Prophylaxis Ordered?: Yes Types of VTE Prophylaxis: TEDS Knee High Location of Applied Device: Bilateral Lower Extremeties - VTE Diagnosis Confirmed Treatment or plan recommended: Continue Current Treatment
[2019-01-14 07:51] LABS: Basophils % 0.1 % (0.1-2.0); Eosinophils % 0.1 % (0.1-12.0); Hematocrit 33.9 % (42.0-52.0); Hemoglobin 10.8 g/dL (14.1-18.0); Lymphocytes # 0.9 K/mm3 (0.7-4.5); Lymphocytes % 6.8 % (10-50); Mean Corpuscular HGB Conc 31.9 g/dL (31.8-35.4); Mean Corpuscular Hemoglobin 27.3 pg (27.0-31.2); Mean Corpuscular Volume 85.8 fl (80-94); Mean Platelet Volume 8.3 fl (7.4-10.4); Monocytes # 0.4 K/mm3 (0.1-1.0); Monocytes % 2.8 % (1.7-9.3); Neutrophils # 12.2 K/mm3 (1.8-7.8); Neutrophils % 90.2 % (37.0-80.0); Platelet Count 190 K/mm3 (142-424); Red Blood Count 3.95 M/mm3 (4.60-6.20); Red Cell Distribution Width 17.1 % (11.5-17.5); White Blood Count 13.6 K/mm3 (4.8-10.8)
[2019-01-14 07:54] LABS: Anion Gap 15.1 mEq/L (5-15); Blood Urea Nitrogen 42 mg/dL (7-18); Calcium 8.5 mg/dL (8.5-10.1); Carbon Dioxide 26 mmol/L (21.0-32.0); Chloride 102 mmol/L (98-107); Glucose 179 mg/dL (74-106); Potassium 4.1 mmoL/L (3.5-5.1); Sodium 139 mmol/L (136-145)
--- NOTE | 2019-01-14 11:23 | H&P/Discharge Summary ---
<Awilda Shaw - Last Filed: 01/14/19 11:48> General - General Admission date:: 01/14/19 Discharge date: 01/14/19 *Admission Date: 01/13/19 *Chief complaint: cough, SOA *History of present illness: Mr. Lopez is an 83-year-old male with a history of CVA, coronary artery disease, non-Hodgkin's lymphoma in remission, hypertension, hyperlipidemia, history of DVT and PE, and PVD. He states for the past few days he has been more short of breath and has had a cough. He has been more weak than normal and running a low-grade fever, therefore he presented to the emergency room for evaluation. He was felt to have a pneumonia and was admitted for further evaluation and treatment. [facility] History Medical History: Reports:: Arrhythmia, Atherosclerotic Heart Disease, Atrial Fibrillation, BPH, Cancer, Carotid Stenosis, Congestive Heart Failure, Chronic Obstructive Pulmonary Disease (COPD), Coronary Artery Disease, Cerebrovascular Accident, Deep Vein Thrombosis, Diabetes Mellitus Type 2, Gastroesophageal Reflux Disease(GERD), Hyperlipidemia, Hypertension, Peripheral Artery Disease, Peripheral Vascular Disease, Renal Insufficiency Denies:: Dementia, Depression, Diabetes Mellitus Type 1, Internal Pacemaker, MRSA, Seizures *Have you ever received a pneumonia vaccine?: Yes *Have you received a flu vaccine this season?: Yes Other Medical History: Reports: Arthritis, Cataracts, Hypothyroidism, Thyroid Disease, Other Laterality Cases: Left: Carotid Endarterectomy Other Surgeries: Yes: Cancer Surgery, Cardiac Catheterization, Cholecystectomy, Colonoscopy, Colon Resection, Coronary Stent, Other (Carotid Endarterectomy). No: Pacemaker Amputation: No Fractures: No - *Social History Educational Level: Completed High School Smoking Status: Former smoker Tobacco Type: cigarettes # Packs/Day (cigarettes): 1 #Yrs smoked (if former smoker): 45 Smoking End Date: 45 YEARS AGO Alcohol Intake: never Alcohol Intake Frequency:: other Substance Use Type: denies use *Occupational Status:: retired Housing: other Household Members: children *Travel in the last 8 weeks: None - Psychiatric History Expresses thoughts of harming self/others: None Suicide Plan Description: No Plan Pschychiatric History:: Denies:: Depression Family Hx:: Cancer, Hypertension Review of Systems - Constitutional Reports fever(s), Reports malaise, Reports weakness - Eyes Denies blurry vision, Denies double vision - ENT Reports nasal congestion, Denies sore throat - *Cardiovascular Reports shortness of breath, Denies chest pain, Denies rapid, pounding, or irregular heartbeat - *Respiratory Reports chest congestion, Reports cough, Reports shortness of breath - *Gastrointestinal Denies abdominal pain, Denies loose stools, Denies nausea, Denies vomiting - *Genitourinary Denies difficulty urinating, Denies painful urination - *Musculoskeletal Denies joint pain - *Neurologic Reports weakness, Denies headache(s), Denies seizure-like activity, Denies dizziness Exam Vital signs and Labs for Last 24 Hours: Temp Pulse Resp BP Pulse Ox 98.0 F 64 18 118/53 L 94 L 01/14/19 08:00 01/14/19 08:00 01/14/19 08:00 01/14/19 08:00 01/14/19 08:00 Laboratory Results - last 24 hr 01/13/19 23:50: WBC 16.3 H, RBC 4.21 L, Hgb 11.5 L, Hct 36.4 L, MCV 86.5, MCH 27.4, MCHC 31.7 L, RDW 17.4, Plt Count 230, MPV 8.6, Neut % (Auto) 77.5, Lymph % (Auto) 12.6, [facility] % (Auto) 8.3, Eos % (Auto) 1.4, Baso % (Auto) 0.2, Neut # (Auto) 12.6 H, Lymph # (Auto) 2.1, [facility] # (Auto) 1.3 H, Eos # (Auto) 0.2, Baso # (Auto) 0.0, Total Counted 100, Neutrophils % (Manual) 87 H, Lymphocytes % (Manual) 11, Monocytes % (Manual) 1 L, Eosinophils % (Manual) 1, Platelet Estimate Normal, Anisocytosis 1+, Ovalocytes 1+ 01/13/19 23:50: Sodium 138, Potassium 3.7, Chloride 101, Carbon Dioxide 26, Anion Gap 14.7, BUN 38 H, Creatinine 2.45 H, Estimated Creat Clear 35, Estimated GFR 25 L, Est GFR ( Amer) 31 L, Glucose 114 H, Calcium 8.7, Total Bilirubin 0.8, AST 19, ALT 32, Alkaline Phosphatase 94, Total Protein 7.5, Albumin 3.3 L, Globulin 4.2 H, Albumin/Globulin Ratio 0.8 L 01/13/19 23:50: Lactate 1.7 01/14/19 00:00: ESR 35 H 01/14/19 01:59: C-Reactive Protein 6.9 H 01/14/19 05:48: POC Glucose 136 H 01/14/19 06:55: WBC 13.6 H, RBC 3.95 L, Hgb 10.8 L, Hct 33.9 L, MCV 85.8, MCH 27.3, MCHC 31.9, RDW 17.1, Plt Count 190, MPV 8.3, Neut % (Auto) 90.2 H, Lymph % (Auto) 6.8 L, [facility] % (Auto) 2.8, Eos % (Auto) 0.1, Baso % (Auto) 0.1, Neut # (Auto) 12.2 H, Lymph # (Auto) 0.9, [facility] # (Auto) 0.4, Eos # (Auto) 0.0, Baso # (Auto) 0.0 01/14/19 06:55: Sodium 139, Potassium 4.1, Chloride 102, Carbon Dioxide 26, Anion Gap 15.1 H, BUN 42 H, Creatinine 2.57 H, Estimated Creat Clear 33, Estimated GFR 24 L, Est GFR ( Amer) 29 L, Glucose 179 H D, Calcium 8.5, Magnesium 1.6, Troponin I < 0.02 01/14/19 09:25: Troponin I < 0.02 I & O for Last 24 hours: Intake & Output 01/11/19 01/12/19 01/13/19 01/14/19 11:59 11:59 11:59 11:59 Intake Total 360 / 360 Output Total 100 / 100 Balance 260 / 260 Weight 245 lb 6 oz Microbiology Reports for the Last 24 Hours: Microbiology 01/14/19 02:40 Sputum - Expectorated Sputum Gram Stain - Final - Constitutional no acute distress - *Routine HEENT Exam Head: Present: normocephalic Eye: Present: EOMI, PERRL ENT: Present: mucous membranes dry - *Routine Neck Exam Present: supple. Absent: lymphadenopathy - *Routine Respiratory Exam Present: decreased breath sounds - *Routine Cardiovascular Exam Present: RRR - *Routine Abdominal Exam Present: soft, normoactive bowel sounds. Absent: tenderness - *Routine Extremities Exam Absent: cyanosis, clubbing, edema - *Routine Skin Exam Present: warm. Absent: rash - *Routine Neurological Exam Present: alert, oriented X3 Hospital Course Hospital Course: The patient was started on Zithromax and Rocephin and his white blood cell count did improve. His renal function was elevated, but he has chronic kidney disease. He was started on some IV fluids as well as some of his home medications. His chest x-ray showed a possible right lower lobe infiltrate versus atelectasis. His troponins were all negative. His sats were stable without any oxygen. His sputum and blood cultures are still pending. As he had not tried any oral medications on an outpatient basis, it was felt he was stable to be discharged home on oral Zithromax and Cefdinir. He already has a follow- up appointment scheduled with Dr. agee on 01/22/2019 and he will keep this appointment. Results Labs on day of discharge: Labs from last 24 hours 01/14/19 01/14/19 01/14/19 09:25 06:55 06:55 WBC 13.6 H RBC 3.95 L Hgb 10.8 L Hct 33.9 L MCV 85.8 MCH 27.3 MCHC 31.9 RDW 17.1 Plt Count 190 MPV 8.3 Neut % (Auto) 90.2 H Lymph % (Auto) 6.8 L [facility] % (Auto) 2.8 Eos % (Auto) 0.1 Baso % (Auto) 0.1 Neut # (Auto) 12.2 H Lymph # (Auto) 0.9 [facility] # (Auto) 0.4 Eos # (Auto) 0.0 Baso # (Auto) 0.0 Total Counted Neutrophils % (Manual) Lymphocytes % (Manual) Monocytes % (Manual) Eosinophils % (Manual) Platelet Estimate Anisocytosis Ovalocytes ESR Sodium 139 Potassium 4.1 Chloride 102 Carbon Dioxide 26 Anion Gap 15.1 H BUN 42 H Creatinine 2.57 H Estimated Creat Clear 33 Estimated GFR 24 L Est GFR ( Amer) 29 L Glucose 179 H D POC Glucose Lactate Calcium 8.5 Magnesium 1.6 Total Bilirubin AST ALT Alkaline Phosphatase Troponin I < 0.02 < 0.02 C-Reactive Protein Total Protein Albumin Globulin Albumin/Globulin Ratio 01/14/19 01/14/19 01/14/19 05:48 01:59 00:00 WBC RBC Hgb Hct MCV MCH MCHC RDW Plt Count MPV Neut % (Auto) Lymph % (Auto) [facility] % (Auto) Eos % (Auto) Baso % (Auto) Neut # (Auto) Lymph # (Auto) [facility] # (Auto) Eos # (Auto) Baso # (Auto) Total Counted Neutrophils % (Manual) Lymphocytes % (Manual) Monocytes % (Manual) Eosinophils % (Manual) Platelet Estimate Anisocytosis Ovalocytes ESR 35 H Sodium Potassium Chloride Carbon Dioxide Anion Gap BUN Creatinine Estimated Creat Clear Estimated GFR Est GFR ( Amer) Glucose POC Glucose 136 H Lactate Calcium Magnesium Total Bilirubin AST ALT Alkaline Phosphatase Troponin I C-Reactive Protein 6.9 H Total Protein Albumin Globulin Albumin/Globulin Ratio 01/13/19 01/13/19 01/13/19 23:50 23:50 23:50 WBC 16.3 H RBC 4.21 L Hgb 11.5 L Hct 36.4 L MCV 86.5 MCH 27.4 MCHC 31.7 L RDW 17.4 Plt Count 230 MPV 8.6 Neut % (Auto) 77.5 Lymph % (Auto) 12.6 [facility] % (Auto) 8.3 Eos % (Auto) 1.4 Baso % (Auto) 0.2 Neut # (Auto) 12.6 H Lymph # (Auto) 2.1 [facility] # (Auto) 1.3 H Eos # (Auto) 0.2 Baso # (Auto) 0.0 Total Counted 100 Neutrophils % (Manual) 87 H Lymphocytes % (Manual) 11 Monocytes % (Manual) 1 L Eosinophils % (Manual) 1 Platelet Estimate Normal Anisocytosis 1+ Ovalocytes 1+ ESR Sodium 138 Potassium 3.7 Chloride 101 Carbon Dioxide 26 Anion Gap 14.7 BUN 38 H Creatinine 2.45 H Estimated Creat Clear 35 Estimated GFR 25 L Est GFR ( Amer) 31 L Glucose 114 H POC Glucose Lactate 1.7 Calcium 8.7 Magnesium Total Bilirubin 0.8 AST 19 ALT 32 Alkaline Phosphatase 94 Troponin I C-Reactive Protein Total Protein 7.5 Albumin 3.3 L Globulin 4.2 H Albumin/Globulin Ratio 0.8 L - Impressions CXR - Increased density right lung base which may be related to soft tissue attenuation, atelectasis, or infiltrate. Recommend upright PA and lateral chest for further evaluation. DS: Diagnosis - Discharge Diagnosis (1) CAP (community acquired pneumonia) Status: Acute (2) Hypothyroidism Status: Chronic (3) Type 2 diabetes mellitus Status: Chronic (4) Renal insufficiency Status: Chronic (5) ASCVD (arteriosclerotic cardiovascular disease) Status: Chronic (6) CAD (coronary artery disease) Status: Chronic (7) Chronic CHF Status: Chronic (8) HHD (hypertensive heart disease) Status: Chronic (9) HLD (hyperlipidemia) Status: Chronic (10) History of atrial fibrillation Status: Chronic (11) Non-Hodgkin lymphoma Status: Chronic (12) PAD (peripheral artery disease) Status: Chronic Discharge Medications - Medications for Discharge Home Medication List at Discharge: New Azithromycin [Z-Chapo 250mg Tab] 250 mg PO UD DOSE PK #6 tab Cefdinir [Omnicef 300mg Capsule] 300 mg PO BID 7 Days #7 cap Continued furosemide 40 mg tablet 40 mg PO DAILY tab levothyroxine 75 mcg capsule 75 mcg PO DAILY cap aspirin 325 mg tablet 325 mg PO DAILY multivitamin tablet 1 tab PO DAILY atorvastatin 20 mg tablet 20 mg PO HS #30 tab carvedilol 6.25 mg tablet 6.25 mg PO TID 30 Days #90 tab Tamsulosin HCl [Flomax 0.4mg capsule] 0.4 mg PO DAILY Mirtazapine [Remeron 15mg tablet] 15 mg PO HS Lisinopril [Lisinopril 40mg Tablet] 40 mg PO BID Glimepiride 4 mg PO DAILY Clopidogrel Bisulfate [Plavix 75mg Tab] 75 mg PO DAILY Pantoprazole Sodium [Protonix 40mg tablet] 40 mg PO DAILY Sitagliptin Phosphate [Januvia 25mg Tablet] 25 mg PO DAILY Vit D3-Vit K/Berberine/Hops [Ostera Tablet] 1 each PO DAILY Cetirizine HCl [Zyrtec] 10 mg PO DAILY Amiodarone HCl [Cordarone 200mg tablet] 200 mg PO DAILY Cholecalciferol (Vitamin D3) [Vitamin D3] 2,000 units PO DAILY Amlodipine Besylate [Amlodipine 10mg Tab] 10 mg PO DAILY Disposition Disposition: Home, Self-Care <Manda Turpin - Last Filed: 01/14/19 12:46> General - General Admission date:: 01/14/19 Exam Vital signs and Labs for Last 24 Hours: Temp Pulse Resp BP Pulse Ox 98.0 F 64 18 118/53 L 94 L 01/14/19 08:00 01/14/19 08:00 01/14/19 08:00 01/14/19 08:00 01/14/19 08:00 Laboratory Results - last 24 hr 01/13/19 23:50: WBC 16.3 H, RBC 4.21 L, Hgb 11.5 L, Hct 36.4 L, MCV 86.5, MCH 27.4, MCHC 31.7 L, RDW 17.4, Plt Count 230, MPV 8.6, Neut % (Auto) 77.5, Lymph % (Auto) 12.6, [facility] % (Auto) 8.3, Eos % (Auto) 1.4, Baso % (Auto) 0.2, Neut # (Auto) 12.6 H, Lymph # (Auto) 2.1, [facility] # (Auto) 1.3 H, Eos # (Auto) 0.2, Baso # (Auto) 0.0, Total Counted 100, Neutrophils % (Manual) 87 H, Lymphocytes % (Manual) 11, Monocytes % (Manual) 1 L, Eosinophils % (Manual) 1, Platelet Estimate Normal, Anisocytosis 1+, Ovalocytes 1+ 01/13/19 23:50: Sodium 138, Potassium 3.7, Chloride 101, Carbon Dioxide 26, Anion Gap 14.7, BUN 38 H, Creatinine 2.45 H, Estimated Creat Clear 35, Estimated GFR 25 L, Est GFR ( Amer) 31 L, Glucose 114 H, Calcium 8.7, Total Bilirubin 0.8, AST 19, ALT 32, Alkaline Phosphatase 94, Total Protein 7.5, Albumin 3.3 L, Globulin 4.2 H, Albumin/Globulin Ratio 0.8 L 01/13/19 23:50: Lactate 1.7 01/14/19 00:00: ESR 35 H 01/14/19 01:59: C-Reactive Protein 6.9 H 01/14/19 05:48: POC Glucose 136 H 01/14/19 06:55: WBC 13.6 H, RBC 3.95 L, Hgb 10.8 L, Hct 33.9 L, MCV 85.8, MCH 27.3, MCHC 31.9, RDW 17.1, Plt Count 190, MPV 8.3, Neut % (Auto) 90.2 H, Lymph % (Auto) 6.8 L, [facility] % (Auto) 2.8, Eos % (Auto) 0.1, Baso % (Auto) 0.1, Neut # (Auto) 12.2 H, Lymph # (Auto) 0.9, [facility] # (Auto) 0.4, Eos # (Auto) 0.0, Baso # (Auto) 0.0 01/14/19 06:55: Sodium 139, Potassium 4.1, Chloride 102, Carbon Dioxide 26, Anion Gap 15.1 H, BUN 42 H, Creatinine 2.57 H, Estimated Creat Clear 33, Estimated GFR 24 L, Est GFR ( Amer) 29 L, Glucose 179 H D, Calcium 8.5, Magnesium 1.6, Troponin I < 0.02 01/14/19 09:25: Troponin I < 0.02 01/14/19 11:25: POC Glucose 311 H* I & O for Last 24 hours: Intake & Output 01/12/19 01/13/19 01/14/19 01/15/19 11:59 11:59 11:59 11:59 Intake Total 360 / 360 Output Total 100 / 100 Balance 260 / 260 Weight 245 lb 6 oz Microbiology Reports for the Last 24 Hours: Microbiology 01/14/19 02:40 Sputum - Expectorated Sputum Gram Stain - Final Hospital Course Hospital Course: Agree with above; patient examined at 9 am. Discharge home with PO abx as he is on RA is not needing any oxygen with ambulation and/or rest. Advised to f/u with Dr. Agee. Results Labs on day of discharge: Labs from last 24 hours 01/14/19 01/14/19 01/14/19 11:25 09:25 06:55 WBC RBC Hgb Hct MCV MCH MCHC RDW Plt Count MPV Neut % (Auto) Lymph % (Auto) [facility] % (Auto) Eos % (Auto) Baso % (Auto) Neut # (Auto) Lymph # (Auto) [facility] # (Auto) Eos # (Auto) Baso # (Auto) Total Counted Neutrophils % (Manual) Lymphocytes % (Manual) Monocytes % (Manual) Eosinophils % (Manual) Platelet Estimate Anisocytosis Ovalocytes ESR Sodium 139 Potassium 4.1 Chloride 102 Carbon Dioxide 26 Anion Gap 15.1 H BUN 42 H Creatinine 2.57 H Estimated Creat Clear 33 Estimated GFR 24 L Est GFR ( Amer) 29 L Glucose 179 H D POC Glucose 311 H* Lactate Calcium 8.5 Magnesium 1.6 Total Bilirubin AST ALT Alkaline Phosphatase Troponin I < 0.02 < 0.02 C-Reactive Protein Total Protein Albumin Globulin Albumin/Globulin Ratio 01/14/19 01/14/19 01/14/19 06:55 05:48 01:59 WBC 13.6 H RBC 3.95 L Hgb 10.8 L Hct 33.9 L MCV 85.8 MCH 27.3 MCHC 31.9 RDW 17.1 Plt Count 190 MPV 8.3 Neut % (Auto) 90.2 H Lymph % (Auto) 6.8 L [facility] % (Auto) 2.8 Eos % (Auto) 0.1 Baso % (Auto) 0.1 Neut # (Auto) 12.2 H Lymph # (Auto) 0.9 [facility] # (Auto) 0.4 Eos # (Auto) 0.0 Baso # (Auto) 0.0 Total Counted Neutrophils % (Manual) Lymphocytes % (Manual) Monocytes % (Manual) Eosinophils % (Manual) Platelet Estimate Anisocytosis Ovalocytes ESR Sodium Potassium Chloride Carbon Dioxide Anion Gap BUN Creatinine Estimated Creat Clear Estimated GFR Est GFR ( Amer) Glucose POC Glucose 136 H Lactate Calcium Magnesium Total Bilirubin AST ALT Alkaline Phosphatase Troponin I C-Reactive Protein 6.9 H Total Protein Albumin Globulin Albumin/Globulin Ratio 01/14/19 01/13/19 01/13/19 00:00 23:50 23:50 WBC RBC Hgb Hct MCV MCH MCHC RDW Plt Count MPV Neut % (Auto) Lymph % (Auto) [facility] % (Auto) Eos % (Auto) Baso % (Auto) Neut # (Auto) Lymph # (Auto) [facility] # (Auto) Eos # (Auto) Baso # (Auto) Total Counted Neutrophils % (Manual) Lymphocytes % (Manual) Monocytes % (Manual) Eosinophils % (Manual) Platelet Estimate Anisocytosis Ovalocytes ESR 35 H Sodium 138 Potassium 3.7 Chloride 101 Carbon Dioxide 26 Anion Gap 14.7 BUN 38 H Creatinine 2.45 H Estimated Creat Clear 35 Estimated GFR 25 L Est GFR ( Amer) 31 L Glucose 114 H POC Glucose Lactate 1.7 Calcium 8.7 Magnesium Total Bilirubin 0.8 AST 19 ALT 32 Alkaline Phosphatase 94 Troponin I C-Reactive Protein Total Protein 7.5 Albumin 3.3 L Globulin 4.2 H Albumin/Globulin Ratio 0.8 L 01/13/19 23:50 WBC 16.3 H RBC 4.21 L Hgb 11.5 L Hct 36.4 L MCV 86.5 MCH 27.4 MCHC 31.7 L RDW 17.4 Plt Count 230 MPV 8.6 Neut % (Auto) 77.5 Lymph % (Auto) 12.6 [facility] % (Auto) 8.3 Eos % (Auto) 1.4 Baso % (Auto) 0.2 Neut # (Auto) 12.6 H Lymph # (Auto) 2.1 [facility] # (Auto) 1.3 H Eos # (Auto) 0.2 Baso # (Auto) 0.0 Total Counted 100 Neutrophils % (Manual) 87 H Lymphocytes % (Manual) 11 Monocytes % (Manual) 1 L Eosinophils % (Manual) 1 Platelet Estimate Normal Anisocytosis 1+ Ovalocytes 1+ ESR Sodium Potassium Chloride Carbon Dioxide Anion Gap BUN Creatinine Estimated Creat Clear Estimated GFR Est GFR ( Amer) Glucose POC Glucose Lactate Calcium Magnesium Total Bilirubin AST ALT Alkaline Phosphatase Troponin I C-Reactive Protein Total Protein Albumin Globulin Albumin/Globulin Ratio DS: Diagnosis - Discharge Diagnosis (1) CAP (community acquired pneumonia) Status: Acute (2) Hypothyroidism Status: Chronic (3) Type 2 diabetes mellitus Status: Chronic (4) Renal insufficiency Status: Chronic (5) ASCVD (arteriosclerotic cardiovascular disease) Status: Chronic (6) CAD (coronary artery disease) Status: Chronic (7) Chronic CHF Status: Chronic (8) HHD (hypertensive heart disease) Status: Chronic (9) HLD (hyperlipidemia) Status: Chronic (10) History of atrial fibrillation Status: Chronic (11) Non-Hodgkin lymphoma Status: Chronic (12) PAD (peripheral artery disease) Status: Chronic
== END 2019-01-14 15:05 | disposition home or self-care (01) ==
LOC: 2ND 23:21 → ER 23:21 → 2ND 01-14 03:58
PROVIDERS: ADMIT Emergency Medicine; ATTEND Emergency Medicine
DX: I50.9 Heart failure, unspecified; I48.2 Chronic atrial fibrillation; Z88.8 Allergy status to other drugs, medicaments and biological substances; Z86.73 Personal history of transient ischemic attack (TIA), and cerebral infarction without residual deficits; Z68.35 Body mass index [BMI] 35.0-35.9, adult; Z79.01 Long term (current) use of anticoagulants; Z85.72 Personal history of non-Hodgkin lymphomas; Z79.82 Long term (current) use of aspirin; N18.3 Chronic kidney disease, stage 3 (moderate); Z79.4 Long term (current) use of insulin; J18.1 Lobar pneumonia, unspecified organism; Z86.718 Personal history of other venous thrombosis and embolism; Z79.899 Other long term (current) drug therapy; Z88.0 Allergy status to penicillin; E78.5 Hyperlipidemia, unspecified; R05 Cough; I11.0 Hypertensive heart disease with heart failure; E03.9 Hypothyroidism, unspecified; I25.10 Atherosclerotic heart disease of native coronary artery without angina pectoris; I13.0 Hypertensive heart and chronic kidney disease with heart failure and stage 1 through stage 4 chronic kidney disease, or unspecified chronic kidney disease; E66.9 Obesity, unspecified; I73.9 Peripheral vascular disease, unspecified; E11.22 Type 2 diabetes mellitus with diabetic chronic kidney disease
CPT/HCPCS: 36415; 71010; 71045; 80048; 80053; 82962; 83605; 83735; 84484; 85007; 85025; 85651; 86140; 87040; 87070; 87077; 87205; 96365; 96367; 96375; 99284; G0378; J0456